=== PATIENT | male | born 1945 | race Caucasian/White ===

== ENCOUNTER 2017-10-18 08:30 | Outpatient (RCR) | payer MEDICARE, BC, SELFPAY ==
--- NOTE | 2017-10-05 13:55 | PTTR_ITS ---
DATE: 10/05/17 SUBJECTIVE: Андрей states that his shoulder is feeling really good. He has questions about what he can and can't do, stating that he purchased a [employer] and will be getting it tomorrow. Compliant with HEP: x Yes No OBJECTIVE: Manual therapy: ([id number]): Андрей received manual stretching through all planes of left shoulder motion. He initially tolerates 120 degrees active shoulder flexion, 140 passive. He received sustained stretching into all planes , with sustained holds into flexion and abduction. Performed gentle rolling and gliding of the humeral head, and progressive stretching. He eventually tolerates 150 degrees flexion, 70 IR and 70 ER. Therapeutic procedures ([id number]). * x HEP review: * x Provided skilled instruction in proper exercise performance: Attempted UE activities on [employer] with high kneel rows on L3, although patient is unable to maintain appropriate form with loading of the LUE. Instead instructed him in theraband resisted exercises, consisting of 3 sets of 10 rows, extension and tricep kick backs, all of which he tolerates well, although with significant fatigue. He was instructed in squatting activities on the [employer] , with need for cues and positional correction. He was provided with a green theraband for home use. * Provided skilled manual cues to facilitate proper muscle recruitment and/ or movement pattern: For appropriate upright positioning during UE exercises. Direct treatment time: 30 minutes Total treatment time: 30 minutes
--- NOTE | 2017-10-18 08:30 | PTDS_ITS ---
Date: October 18, 2017 Referring: Dr. Andrew Cosby [facility] Diagnosis: L TSA 07/04/17 PT DX: Same Treatment dates: 07/26/17- 10/18/17 Subjective: History of Present Illness: Андрей states that his shoulder is feeling great. He continues to feel challenged by the theraband exercises although has no pain to speak of. 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 . . He continues to struggle with lifting items and sensation of weakness in the arm. Standardized Measures: DASH score shows a 27% deficit. Objective: Posture: Good upright posturing without protective positioning of the L UE. Palpation: Well healed surgical incision over the anterior shoulder. ROM: Shoulder flexion allows 165 degrees A on L, abduction 160 A, functional IR is comparable to the R with thumb to L2. Active ER allows 45 degrees with elbows at sides. Strength: Shoulder flexion is 5/5 R, 4/5 L. Abduction 4/5 R, 4-/5 L, IR 4+/5 bilaterally, ER is 5/5 R, 4/5 L. Treatment: Therapeutic Procedure [id number]: Today's session consisted of a re- assessment followed by review of HEP and progression to include some sidelying ER. The patient requires verbal and tactile cues for appropriate scapular positioning and avoidance of compensatory scapular movement patterns. Treatment Time: 20 mins Direct/Total. Assessment: The patient is a 71 year old male who has been receiving PT intervention for rehabilitation following a L total shoulder replacement. He is now almost 4 months post op and has regained significant amount of function out of the UE. 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 At this point all rehab goals have been met and patient is appropriate for discharge to fully independent program. G-Codes: [id number] based on DASH score, projected goal status had been GP-CI- [id number]. ST: Full PROM L shoulder (MET) 2: Initiate AAROM L shoulder with good tolerance (MET) LT: Full functional reach L shoulder (MET) 2: Well managed pain day to day with VAS rating of less than 3/10 (MET) 3: Fully independent with ADL's including dressing and self care (MET) Plan: Discharge to [facility]. SS/dl *Dr. Cosby, please sign this discharge summary if you are in agreement with discharge plan. cc: Andrew Cosby MD
== END 2017-11-02 23:59 | disposition home or self-care (01) ==
LOC: PT 08:30
PROVIDERS: PCP Emergency Medicine; Referring Provider Orthopaedic Surgery Adult Reconstructive Orthopaedic Surgery; Visit Provider Orthopaedic Surgery Adult Reconstructive Orthopaedic Surgery
DX: Z47.1 Aftercare following joint replacement surgery (principal); Z96.612 Presence of left artificial shoulder joint
CPT/HCPCS: 97110; 97140

== ENCOUNTER 2018-03-19 09:46 | Outpatient (CLI) | payer MEDICARE, BC, SELFPAY ==
[2018-03-19 10:34] LABS: Hemoglobin A1C 7.6 % (4.5-6.2)
[2018-03-19 11:25] LABS: Cholesterol 110 mg/dL (50-200); HDL Cholesterol 30 mg/dL (40-60); LDL CHOLESTEROL 54 mg/dL (<100); Triglyceride 220 mg/dL (30-150)
== END 2018-03-19 10:06 ==
PROVIDERS: PCP Emergency Medicine; Visit Provider Emergency Medicine
DX: I10 Essential (primary) hypertension (principal); E11.9 Type 2 diabetes mellitus without complications
CPT/HCPCS: 36415; 80061; 83721; 83036

== ENCOUNTER 2018-05-08 06:58 | Outpatient (CLI) | payer MEDICARE, BC, SELFPAY ==
[2018-05-08 07:51] LABS: Hemoglobin A1C 7.4 % (4.5-6.2)
[2018-05-08 08:13] LABS: Anion Gap 9.1 mmol/L (3-11); BUN 14 mg/dL (7-18); CO2 30.9 mmol/L (21.0-32.0); CREATININE 1.15 mg/dL (0.70-1.30); Calcium 9.2 mg/dL (8.5-10.1); Chloride 101 mmol/L (98-107); Glucose 126 mg/dL (70-100); Potassium 3.6 mmol/L (3.5-5.1); Sodium 141 mmol/L (136-145)
== END 2018-05-08 07:18 ==
PROVIDERS: PCP Emergency Medicine; Visit Provider Emergency Medicine
DX: I10 Essential (primary) hypertension (principal); R73.9 Hyperglycemia, unspecified; E11.9 Type 2 diabetes mellitus without complications
CPT/HCPCS: 36415; 80048; 83036

== ENCOUNTER 2018-07-01 07:05 | Outpatient (CLI) | payer MEDICARE, BC, SELFPAY ==
[2018-07-01 07:32] LABS: Abs Immature Grans 0.01 k/cumm (0.0-0.09); Absolute Basophil Count 0.01 k/cumm (0.0-0.2); Absolute Eosinophil Count 0.11 k/cumm (0.0-0.7); Absolute Lymphocyte Count 1.25 k/cumm (1.2-3.4); Absolute Monocyte Count 0.46 k/cumm (0.11-0.7); Basophils % 0.2; HGB 13.3 g/dL (13.5-17.5); Immature Grans % 0.2; Mean Corp. HGB Concentration 33.3 g/dL (32.0-36.0); Mean Corpuscular Hemoglobin 29.8 pg (27.0-33.0); Mean Corpuscular Volume 89.5 fL (80-95); Mean Platelet Volume 10.5 fL (8.0-11.0); Monocytes % 8.5; Neutrophils % 66.1; Platelet Count 216 x1000/uL (130-400); RBC 4.47 m/cumm (4.50-6.00); RBC Distribution Width 13.1 % (11.8-14.1); White Blood Cell Count 5.44 k/cumm (4.4-10.8)
[2018-07-01 07:45] LABS: ALT 24 U/L (12-78); AST 17 U/L (15-37); Albumin 3.4 g/dL (3.4-5.0); Alkaline Phosphatase 61 U/L (46-116); Anion Gap 6.1 mmol/L (3-11); BUN 14 mg/dL (7-18); Bilirubin, Total 0.6 mg/dL (0.2-1.0); CO2 31.9 mmol/L (21.0-32.0); CREATININE 0.94 mg/dL (0.70-1.30); Calcium 8.9 mg/dL (8.5-10.1); Chloride 103 mmol/L (98-107); Glucose 122 mg/dL (70-100); Potassium 3.6 mmol/L (3.5-5.1); Sodium 141 mmol/L (136-145); Total Protein 6.8 g/dL (6.4-8.2)
== END 2018-07-01 07:25 ==
PROVIDERS: PCP Emergency Medicine; Visit Provider Nurse Practitioner
DX: C7A.8 Other malignant neuroendocrine tumors (principal)
CPT/HCPCS: 36415; 80053; 85025

== ENCOUNTER 2019-01-28 10:24 | Outpatient (CLI) | payer MEDICARE, BC, SELFPAY ==
[2019-01-28 12:49] LABS: Hemoglobin A1C 6.6 % (4.5-6.2)
[2019-01-28 12:54] LABS: Calculated LDL 41 mg/dL; Cholesterol 106 mg/dL (<200); HDL Cholesterol 29 mg/dL (40-60); Triglyceride 183 mg/dL (<150)
== END 2019-01-28 10:44 ==
PROVIDERS: PCP Emergency Medicine; Visit Provider Emergency Medicine
DX: E11.9 Type 2 diabetes mellitus without complications (principal); R73.9 Hyperglycemia, unspecified
CPT/HCPCS: 36415; 80061; 83036

== ENCOUNTER 2020-01-23 01:47 | Outpatient (CLI) | payer MEDICARE, BC, SELFPAY ==
[2020-01-23 09:55] LABS: Anion Gap 10.8 mmol/L (3-11); BUN 12 mg/dL (7-18); CO2 30.2 mmol/L (21.0-32.0); CREATININE 0.93 mg/dL (0.70-1.30); Calculated LDL 23 mg/dL (<100); Chloride 103 mmol/L (98-107); Cholesterol 94 mg/dL (<200); Glucose 117 mg/dL (74-106); HDL Cholesterol 31 mg/dL (40-60); Potassium 3.6 mmol/L (3.5-5.1); Sodium 144 mmol/L (136-145); Triglyceride 202 mg/dL (<150)
[2020-01-26 15:24] LABS: PSA, Screening 2.1 ng/mL (0-6.5)
== END 2020-01-23 02:07 ==
PROVIDERS: PCP Emergency Medicine; Visit Provider Emergency Medicine
DX: I10 Essential (primary) hypertension (principal); Z12.5 Encounter for screening for malignant neoplasm of prostate; N40.2 Nodular prostate without lower urinary tract symptoms
CPT/HCPCS: 36415; 80048; 80061; 84153

== ENCOUNTER 2020-01-27 11:07 | Outpatient (REF) | payer MEDICARE, BC, SELFPAY ==
[2020-01-27 14:07] LABS: Anion Gap 2.8 mmol/L (3-11); BUN 16 mg/dL (7-18); CO2 33.2 mmol/L (21.0-32.0); CREATININE 1.02 mg/dL (0.70-1.30); Calcium 9.1 mg/dL (8.5-10.1); Chloride 103 mmol/L (98-107); Glucose 104 mg/dL (74-106); Sodium 139 mmol/L (136-145)
[2020-01-27 14:11] LABS: Hemoglobin A1C 6.7 % (<5.7)
== END 2020-01-27 11:27 ==
LOC: LBN 11:07
PROVIDERS: PCP Emergency Medicine; Visit Provider Emergency Medicine
DX: E11.9 Type 2 diabetes mellitus without complications (principal); I10 Essential (primary) hypertension
CPT/HCPCS: 80048; 83036

== ENCOUNTER 2020-08-03 10:20 | Outpatient (CLI) | payer MEDICARE, BC, SELFPAY ==
[2020-08-03 12:40] LABS: HCT 37.9 % (40.0-50.0); HGB 12.8 g/dL (13.5-17.5); MCH 29.4 pg (27.0-33.0); MCHC 33.8 % (32.0-36.0); MCV 87.1 fL (80-95); Platelet Count 235 10^3/uL (130-400); RBC 4.35 10^6/uL (4.36-5.78); RDW 12.5 % (11.8-14.1); RDW-SD 39.9 fL; WBC 5.86 10^3/uL (4.4-10.8)
[2020-08-03 12:49] LABS: Anion Gap 7.2 mmol/L (3-11); BUN 14 mg/dL (7-18); CO2 31.8 mmol/L (21.0-32.0); CREATININE 0.9 mg/dL (0.70-1.30); Chloride 104 mmol/L (98-107); Glucose 115 mg/dL (74-106); Sodium 143 mmol/L (136-145)
[2020-08-03 13:50] LABS: COMMENT (LAB VIEW ONLY) 249.84 mg/dL
== END 2020-08-03 10:21 | disposition home or self-care (01) ==
LOC: LOS 10:21
PROVIDERS: PCP Emergency Medicine; Visit Provider Emergency Medicine
DX: I10 Essential (primary) hypertension (principal); E11.9 Type 2 diabetes mellitus without complications
CPT/HCPCS: 36415; 80048; 85027; 82043; 82570; 83036

== ENCOUNTER 2020-12-20 11:22 | Outpatient (CLI) | payer MEDICARE, BC, SELFPAY ==
[2020-12-20 17:13] LABS: FREE T4 1.05 ng/dL (0.76-1.46); TSH 4.53 uIU/mL (0.36-3.74)
[2020-12-20 17:30] LABS: T4 10.8 ug/mL (4.7-13.3)
[2020-12-21 17:53] LABS: T3, Total 163 ng/dL (97-169)
[2020-12-24 15:38] LABS: T3 (Triiodothyronine) Reverse 30 ng/dL (10-24)
== END 2020-12-20 11:23 | disposition home or self-care (01) ==
LOC: LBO 12-21 11:26
PROVIDERS: PCP Emergency Medicine; Visit Provider Optometrist
DX: E05.90 Thyrotoxicosis, unspecified without thyrotoxic crisis or storm (principal); H05.20 Unspecified exophthalmos
CPT/HCPCS: 36415; 84436; 84439; 84443; 84480; 84482

== ENCOUNTER 2021-05-06 11:26 | Outpatient (REF) | payer MEDICARE, BC, SELFPAY ==
[2021-05-06 16:02] LABS: HCT 42.6 % (40.0-50.0); HGB 13.7 g/dL (13.5-17.5); MCH 28.4 pg (27.0-33.0); MCHC 32.2 % (32.0-36.0); MCV 88.2 fL (80-95); MPV 10.8 fL (8.0-11.0); Platelet Count 267 10^3/uL (130-400); RBC 4.83 10^6/uL (4.36-5.78); RDW 12.1 % (11.8-14.1); RDW-SD 38.7 fL; WBC 5.57 10^3/uL (4.4-10.8)
[2021-05-06 16:39] LABS: Hemoglobin A1C 7.2 % (<5.7)
[2021-05-06 16:42] LABS: ALT 28 U/L (16-63); AST 19 U/L (15-37); Albumin 3.7 g/dL (3.4-5.0); Alkaline Phosphatase 55 U/L (46-116); Anion Gap 8.5 mmol/L (3-11); BUN 13 mg/dL (7-18); Bilirubin, Total 0.6 mg/dL (0.2-1.0); CO2 29.5 mmol/L (21.0-32.0); CREATININE 0.9 mg/dL (0.70-1.30); Calcium 8.8 mg/dL (8.5-10.1); Calculated LDL 22 mg/dL (<100); Chloride 104 mmol/L (98-107); Cholesterol 89 mg/dL (<200); Glucose 128 mg/dL (74-106); HDL Cholesterol 32 mg/dL (40-60); Potassium 3.7 mmol/L (3.5-5.1); Sodium 142 mmol/L (136-145); Triglyceride 178 mg/dL (<150)
[2021-05-06 16:53] LABS: COMMENT (LAB VIEW ONLY) 210.71 mg/dL; Microalb ug/mg Crea 15.5 ug/mg Cr
== END 2021-05-06 11:27 | disposition home or self-care (01) ==
LOC: NCHCN 11:26
PROVIDERS: Visit Provider Physician Assistant
DX: I10 Essential (primary) hypertension (principal); E11.9 Type 2 diabetes mellitus without complications; E78.5 Hyperlipidemia, unspecified
CPT/HCPCS: 80053; 80061; 85027; 82043; 82570; 83036

== ENCOUNTER 2021-08-31 10:23 | Outpatient (REF) | payer MEDICARE, BC, SELFPAY ==
[2021-08-31 16:26] LABS: FREE T4 0.96 ng/dL (0.76-1.46)
== END 2021-08-31 10:24 | disposition home or self-care (01) ==
LOC: NCHCN 10:23
PROVIDERS: PCP Physician Assistant; Visit Provider Physician Assistant
DX: H05.20 Unspecified exophthalmos; I10 Essential (primary) hypertension; E05.90 Thyrotoxicosis, unspecified without thyrotoxic crisis or storm; N40.1 Benign prostatic hyperplasia with lower urinary tract symptoms
CPT/HCPCS: 84154; 84439; 84443

== ENCOUNTER 2022-03-24 12:27 | Outpatient (CLI) | payer MEDICARE, BC, SELFPAY ==
--- NOTE | 2022-03-24 | DI.RAD_ITS ---
Exam(s) XR WRIST RT COMPLETE EXAM: XR WRIST RT COMPLETE CLINICAL HISTORY: RT WRIST PAIN, M25.531. TECHNIQUE: 2D digital imaging was performed of the right wrist. Three views were obtained. PA, lat eral and oblique views were obtained. COMPARISON: No exams were available for comparison FINDINGS: BONES: No acute fracture is present. No bony destructive lesion is seen. JOINTS: The carpal bones are normally aligned. There is narrowing of the radiocarpal joint with mild sclerosis. There are marked degenerative changes seen at the 1st CMC joint with joint space narrowin g, subchondral sclerosis and bony hypertrophy. SOFT TISSUE: Normal. 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 Moderate degenerative changes seen at the radiocar pal joint. DATA REPOSITORY: RADIATION DOSE DELIVERED:
== END 2022-03-24 12:47 ==
LOC: DI 12:29
PROVIDERS: PCP Physician Assistant; Visit Provider Nurse Practitioner Family
DX: M18.11 Unilateral primary osteoarthritis of first carpometacarpal joint, right hand (principal)
CPT/HCPCS: 73110

== ENCOUNTER → 2022-04-27 09:55 | Outpatient (BNVA) | payer MEDICARE, BC, SELFPAY | PROVIDERS: PCP Physician Assistant; Referring Provider Physician Assistant; Visit Provider Student in an Organized Health Care Education/Training Program | DX: M19.031 Primary osteoarthritis, right wrist (principal) | CPT/HCPCS: 99203 ==

== ENCOUNTER 2022-05-11 13:10 | Outpatient (CLI) | payer MEDICARE, BC, SELFPAY ==
[2022-05-11 23:55] LABS: PSA, Diagnostic 2.1 ng/mL (<=6.5)
== END 2022-05-11 13:11 | disposition home or self-care (01) ==
LOC: LBO 13:11
PROVIDERS: PCP Physician Assistant; Visit Provider Urology
DX: N40.1 Benign prostatic hyperplasia with lower urinary tract symptoms (principal); N42.89 Other specified disorders of prostate
CPT/HCPCS: 36415; 84153

== ENCOUNTER 2022-08-29 15:46 | Outpatient (REF) | payer MEDICARE, BC, SELFPAY ==
[2022-08-29 19:39] LABS: Bilirubin Negative (Negative); Blood Moderate (Negative); Clarity Clear (Clear); Glucose Negative (Negative); Ketones Negative (Negative); Leukocyte Esterase Trace (Negative); Nitrite Negative (Negative); pH 7.5 (5-8)
[2022-08-29 19:50] LABS: Bacteria Moderate HPF (Negative); C & S Indicated? Yes; Casts Negative LPF (Negative); Crystals Negative HPF (Negative); Epithelial Cells Rare HPF (Negative); Mucus Negative (Negative)
[2022-08-29 20:19] LABS: COMMENT (LAB VIEW ONLY) 80.74 mg/dL
== END 2022-08-29 15:47 | disposition home or self-care (01) ==
LOC: NCHCN 15:46
PROVIDERS: PCP Physician Assistant; Visit Provider Physician Assistant
DX: I25.10 Atherosclerotic heart disease of native coronary artery without angina pectoris (principal); E11.9 Type 2 diabetes mellitus without complications; E78.5 Hyperlipidemia, unspecified; I10 Essential (primary) hypertension; R31.9 Hematuria, unspecified
CPT/HCPCS: 87077; 81003; 81015; 82043; 82570; 87086; 87186

== ENCOUNTER 2022-08-30 18:04 | Outpatient (REF) | payer MEDICARE, BC, SELFPAY ==
[2022-08-30 17:40] LABS: HCT 42.8 % (40.0-50.0); HGB 13.8 g/dL (13.5-17.5); MCH 28.9 pg (27.0-33.0); MCHC 32.2 % (32.0-36.0); MCV 90 fL (80-95); Platelet Count 333 10^3/uL (130-400); RBC 4.78 10^6/uL (4.36-5.78); RDW 12.7 % (11.8-14.1); RDW-SD 41.2 fL; WBC 6.98 10^3/uL (4.4-10.8)
[2022-08-30 18:11] LABS: ALT 31 U/L (16-63); AST 22 U/L (15-37); Albumin 3.5 g/dL (3.4-5.0); Alkaline Phosphatase 60 U/L (46-116); BUN 10 mg/dL (7-18); Bilirubin, Total 0.4 mg/dL (0.2-1.0); CREATININE 0.9 mg/dL (0.70-1.30); Calcium 9.5 mg/dL (8.5-10.1); Calculated LDL 21 mg/dL (<100); Chloride 102 mmol/L (98-107); Cholesterol 81 mg/dL (<200); Estimated GFR 89.07 (mL/min/1.73m2); Glucose 129 mg/dL (74-106); HDL Cholesterol 29 mg/dL (40-60); Potassium 3.9 mmol/L (3.5-5.1); Sodium 141 mmol/L (136-145); Total Protein 7.5 g/dL (6.4-8.2); Triglyceride 158 mg/dL (<150)
[2022-08-30 18:46] LABS: Hemoglobin A1C 7.8 % (<5.7)
== END 2022-08-30 18:05 | disposition home or self-care (01) ==
LOC: NCHCN 18:04
PROVIDERS: PCP Physician Assistant; Visit Provider Physician Assistant
DX: E11.9 Type 2 diabetes mellitus without complications (principal); I25.10 Atherosclerotic heart disease of native coronary artery without angina pectoris; E78.5 Hyperlipidemia, unspecified; I10 Essential (primary) hypertension
CPT/HCPCS: 80053; 80061; 85027; 83036

== ENCOUNTER → 2022-11-09 03:33 | Outpatient (CLI) | payer MEDICARE, BC, SELFPAY ==
--- NOTE | 2022-11-09 08:37 | DI.US_ITS ---
APPROVED REPORT EXAM: Comprehensive 2D, Doppler, and color-flow Echocardiogram Patient Location: Out-Patient Gas Maker: Rome Doty RDCS (AE) Indications: new onset afib Other Information Study Quality: Good Conclusion Mild concentric left ventricular hypertrophy. Normal left ventricular chamber size. Ejection fracti on is 55%. Wall motion is normal Normal right ventricular size and systolic function Left atrium is borderline dilated. Right atrial size is normal Aortic valve is sclerotic and trileaflet with trace regurgitation. There is no aortic stenosis Normal mitral valve with mild regurgitation Normal tricuspid valve with mild to moderate regurgitation. Estimated right ventricular systolic pre ssure is 22 mmHg Wall motion Left Ventricle The left ventricle is normal size. The left ventricular systolic function is normal. The left ventric ular ejection fraction is within the normal range. Mild concentric left ventricular hypertrophy. Ther e is normal LV segmental wall motion. There is no ventricular septal defect visualized. LVEF is 55%. Right Ventricle The right ventricle is normal size. The right ventricular systolic function is normal. The RVSP is 21 .8 mmHg. Atria Left atrium is borderline dilated. The right atrium size is normal. The interatrial septum is intact with no evidence for an atrial septal defect. Aortic Valve The Aortic valve is sclerotic. Aortic valve is trileaflet. There is no aortic valvular stenosis. Trac e aortic regurgitation. Mitral Valve The mitral valve is normal in structure. No evidence of mitral valve stenosis. Mild mitral regurgitat ion. Tricuspid Valve The tricuspid valve is normal in structure. There is no tricuspid valve stenosis. Mild to moderate tr icuspid regurgitation. Pulmonic Valve The pulmonary valve is normal in structure. There is no pulmonic valvular stenosis. There is no pulmo linda valvular regurgitation. Great Vessels The aortic root is normal in size. IVC is normal in size and collapses >50% with inspiration. Pericardium There is no pericardial effusion. 2D Dimensions IVSD d PLAX 1.30 cm M: 0.6-1.2 Ao Root d 3.40 cm M: 3.1 - 3.7 LVPW d PLAX 1.26 cm M: 0.6 - 1.2 LVID d PLAX 4.82 cm M: 4.2 - 5.8 LVDs 3.45 cm M: 2.5 - 4.0 LV EF Teichholz 54.8 % FS 28.46 % LV EDV (Teich) 108.7 mL LV ESV (Teich) 49.1 mL Stroke Vol Index (Teich) 30.38 M-Mode TAPSE 2.25 cm (M/F) >1.7 Auto EF LV EDV A4C 104.1 mL LV EDV A2C 130.6 mL LV EDV BP 117.7 mL LV ESV A4C 50.7 mL LV ESV A2C 58.3 mL LV ESV BP 54.4 mL LVEF(%) A4C 51.3 % LVEF(%) A2C 55.3 % LVEF(%) BP 53.8 % LV SV A4C 53.4 ml LV SV A2C 72.2 ml LV SV BP 63.3 ml LV CO A4C 3.1 L/min LV CO A2C 4.6 L/min LV CO BP 3.9 L/min HR A4C 58.35 BPM HR A2C 64.06 BPM LV EDV Index (BP) LA Volume LA Length A4C 5.1 cm LA Length A2C LA Area A4C s 15.88 cm2 LA Area A2C s LA Vol A4C A-L 42.00 mL LA Vol A2C A-L LA Vol Biplane A-L LA Vol A4C MOD 40.3 mL LA Vol A2C MOD LA Vol BP MOD RA Volume RA Area A4C 11.7 cm2 RA ESV A4C (A-L) 20.6mL RA Vol/BSA A4C A-L RA Length A4C 5.7 cm RA ESV A4C (MOD) 20.1mL LV Diastology MV E' medial 0.058 (>0.07 m/s) MV E Vmax 0.61 (0.4-1.3 m/s) MV E/E' MED 10.50 (<14) MV A Vmax 0.80 (0.4-1.3 m/s) MV E' lateral 0.080 (>0.1 m/s) E/A Ratio 0.8 MV E/E' LAT 7.65 (<14) MV E' Average 0.069 m/s MV E/E'(average) 8.85 Aortic Valve AoV Vmax 1.83 m/s LVOT Vmax 1.18 m/s AoV Peak Grad 33.0 mmHg LVOT Peak Grad 5.5 mmHg AoV Area (Vmax) 1.59 cm2 LVOT VTI 0.251 m AoV VTI 0.407 m LVOT Mean Grad 3.1 mmHg AoV Mean Dany. 1.19 m/s LVOT SV 62.09 mL AoV Mean Grad 6.6 mmHg LVOT Diam s 1.75 cm AoV Area (VTI) 1.52 cm2 AV Regurg Peak Gr. 52.45 mmHg Velocity Ratio 0.64 AR Decel Pleasants 0.8m/sec2 AR DT 4794 msec AR PHT 1390 msec AR Vmax 3.62 m/s Mitral Valve MV DT 216 (160-240 msec) Pulmonary Valve PV Vmax 1.06 (0.5-1.5 m/s) RVOT Vmax 0.67 m/s PV Peak Grad 4.5 mmHg RVOT Peak Gr. 1.8 mmHg PV Mean Dany 0.68 m/s RVOT VTI 0.119 m PV Mean Grad 2.2 mmHg RVOT Mean Gr. 0.7 mmHg Tricuspid Valve RA Pressure 3.00 mmHg TR Vmax 2.17 m/s TR Peak Grad 18.7 mmHg RVSP (TR) 21.8 mmHg
== END ==
PROVIDERS: PCP Physician Assistant; Visit Provider Physician Assistant
DX: I48.91 Unspecified atrial fibrillation (principal)
CPT/HCPCS: 93306

== ENCOUNTER → 2022-11-30 09:37 | Outpatient (CLI) | payer MEDICARE, BC, SELFPAY ==
--- NOTE | 2022-11-30 | DI.US_ITS ---
Exam(s) US SCROTUM EXAM: US SCROTUM CLINICAL HISTORY: LT SCROTAL SWELLING, AND PAIN UNRESOLVED AFTER ANTIBIOTICS TECHNIQUE: Ultrasound of the testes performed using grayscale, color, and Doppler imaging. COMPARISON: None. FINDINGS: RIGHT HEMISCROTUM: The right testicle exhibits normal size and echo architecture with no evidence of intratesticular mas s. Vascular flow was demonstrated within the right testicle, including arterial waveforms. The epididymis appears unremarkable. There are no epididymal head cysts. There is a moderate size non septated right hydrocele. No varicocele. LEFT HEMISCROTUM: The left testicle exhibits normal size and echo architecture with no evidence of intratesticular mass . Vascular flow is demonstrated within the left testicle, including arterial waveforms. The epididymis appears unremarkable. There are no epididymal head cysts. There is a moderate size non septated left hydrocele. No varicocele. IMPRESSION: 1. No evidence of testicular mass nor testicular torsion. 2. There are moderate-sized bilateral hydroceles. 3. No varicoceles evident DATA REPOSITORY:
== END ==
PROVIDERS: PCP Physician Assistant; Visit Provider Urology
DX: N43.2 Other hydrocele (principal); N50.812 Left testicular pain
CPT/HCPCS: 76870

== ENCOUNTER → 2022-12-07 03:02 | Outpatient (CLI) | payer MEDICARE, BC, SELFPAY ==
--- NOTE | 2022-12-07 | DI.CT_ITS ---
Exam(s) CT ABDOMEN PELVIS WO/W EXAM: CT ABDOMEN PELVIS WO/W CLINICAL HISTORY: GROSS HEMATURIA R31.0. TECHNIQUE: Imaging Protocol: Axial computed tomography images with coronal and sagittal reformatted images were created and reviewed. Performed with CT urogram technique protocol. CONTRAST MATERIAL: Intravenous: Omnipaque-350 100cc Oral: None COMPARISON: No exams were available for comparison FINDINGS: VISUALIZED LUNG BASES: No nodules nor pleural effusions evident. ABDOMEN: Prominent hiatal hernia noted There is no ascites. LIVER: There are multiple well-defined hypodensities in the liver which have the appearance of benign hepatic cysts. The largest of these measures 1.3 x 0.7 cm. No dilated intrahepatic ducts. GALLBLADDER/BILIARY: No obvious gallbladder pathology. CBD is not dilated. PANCREAS: No evidence of pancreatic mass nor dilatation of the pancreatic duct. SPLEEN: Spleen is not enlarged. No obvious intrasplenic lesions. There is a single calcified granulo ma noted in this spleen. Splenic and portal veins are patent. ADRENALS: There are no significant adrenal masses. KIDNEYS:There are no solid renal masses. There is a prominent cyst in the lateral cortex of the right kidney which measures 5 cm by cm by 5 cm.. This simple benign cyst requires no further workup. There is nephrolithiasis. There is a nonobstructive calculus in lower pole calyx of the right kidney measu ring 5 x 3 mm. In the opposite-left kidney is a tiny 1 mm calculus in the upper pole calyx. The urete rs are not dilated.. URINARY BLADDER: Uniformly thickened wall which may be related to cystitis versus under distension. N o radiopaque calculi seen in the urinary bladder. No obvious bladder masses. PROSTATE GLAND: Prostate is enlarged and slightly lobulated. It indents the bladder base. There is no obturator adenopathy nor adenopathy elsewhere in the pelvis. ABDOMINAL AORTA: Calcified but not enlarged. LYMPH NODES:There is no retroperitoneal nor paraaortic adenopathy. ABDOMINAL WALL: No evidence of significant anterior abdominal wall nor inguinal hernia. GI: There is no evidence of bowel obstruction, free air, nor abscess. PELVIS: GI: No evidence of appendicitis.There are sigmoid diverticuli but no evidence of acute diverticulitis . LYMPH NODES: There is no intrapelvic nor inguinal adenopathy. REPRODUCTIVE: See above URINARY BLADDER: See above OSSEOUS: No fractures and no significant osseous lesions. IMPRESSION: 1. Bilateral nonobstructive nephrolithiasis. There is a 5 x 3 mm nonobstructive calculus in lower levi e calyx of the right kidney. There is a tiny nonobstructive 1 mm calculus in the upper pole calyx of the opposite-left kidney. No hydronephrosis 2. There is a benign simple cyst in the lateral cortex of the right kidney measuring 5 cm. This does not require further workup. There are no solid masses evident in kidneys. 3. Uniformly thickened urinary bladder wall which is probably a combination of chronic cystitis and r elated to the enlarged prostate gland. There are no bladder diverticuli evident. 4. Other findings as above. RADIATION DOSE DELIVERED: 2,744.56mGy.cm Total DLP DATA REPOSITORY: All CT scans at this facility are submitted to the National Radiology Data Registry (NRDR) Dose Index Registry (DIR) with the [employer] (ACR). RADIATION OPTIMIZATION: All CT scans at this facility use at least one of these dose optimization te chniques: automated exposure control; mA and/or kV adjustment per patient size (includes targeted exa ms where dose is matched to clinical indication); or iterative reconstruction.
[2022-12-07 09:50] LABS: CREATININE 0.8 mg/dL (0.70-1.30); Estimated GFR 92.29 (mL/min/1.73m2)
[2022-12-07] MEDS: Normal Saline - Diluent 50 ML VIAL IJ (10:12)
[2022-12-07] MEDS: Omnipaque 350 MG/ML 100 ML BTL IJ (10:12)
== END ==
PROVIDERS: PCP Physician Assistant; Visit Provider Urology
DX: N20.0 Calculus of kidney (principal); R31.0 Gross hematuria
CPT/HCPCS: 74178; 82565; J3490

== ENCOUNTER 2022-12-27 11:00 | Outpatient (REF) | payer MEDICARE, BC, SELFPAY ==
[2022-12-28 13:05] LABS: Creatinine,Urine 114.21 mg/dL; Sodium, Urine 108 mmol/L
[2022-12-28 13:09] LABS: CLEAVED CELLS 113 mmol/24h (40-220); Creatinine,24hr Ur 1.14 g/24hr (0.95-2.49); Total Volume 1050 ml
[2022-12-29 09:49] LABS: Phosphorus Urine 52.8 mg/dL (See Note); Phosphorus Urine 24hr 0.6 g/24hrs (0.4-1.3); Timed Urine Volume 1050 mL
[2022-12-29 09:51] LABS: Magnesium 24hr Urine 97.7 mg/24hrs (12.0-192.0); Magnesium Random Urine 9.3 mg/dL (See Note); Timed Urine Volume 1050 mL
[2022-12-29 09:55] LABS: Timed Urine Volume 1050 mL; Uric Acid Urine 39.1 mg/dL (See Note); Uric Acid Urine 24hr 411 mg/24hrs (250-750)
[2022-12-29 10:01] LABS: Calcium Urine 20.4 mg/dL (See Note); Calcium Urine 24 hr 214 mg/24hr (100-300); Timed Urine Volume 1050 mL
[2022-12-30 12:02] LABS: Citrate Excretion, 24hr, U 595 mg/24 h; Urine Volume 1050 mL
[2022-12-30 13:14] LABS: Oxalate, U 0.13 mmol/24 h (0.11-0.46); Oxalate, U 11.4 mg/24 h (9.7 - 40.5); Urine Volume 1050 mL
== END 2022-12-27 11:01 | disposition home or self-care (01) ==
LOC: LBN 11:00
PROVIDERS: PCP Physician Assistant; Visit Provider Urology
DX: N20.0 Calculus of kidney (principal)
CPT/HCPCS: 82507; 83735; 81050; 82340; 82570; 83945; 84105; 84300; 84560

== ENCOUNTER 2023-05-21 12:52 | Outpatient (REF) | payer MEDICARE, BC, SELFPAY ==
[2023-05-21 15:08] LABS: HCT 30.3 % (40.0-50.0); HGB 9.4 g/dL (13.5-17.5); MCH 27.6 pg (27.0-33.0); MCV 89 fL (80-95); MPV 10.5 fL (8.0-11.0); Platelet Count 260 10^3/uL (130-400); RDW 13.2 % (11.8-14.1); RDW-SD 43.6 fL; WBC 6.13 10^3/uL (4.4-10.8)
[2023-05-21 15:58] LABS: ALT 22 U/L (16-63); AST 16 U/L (15-37); Albumin 3.6 g/dL (3.4-5.0); Alkaline Phosphatase 50 U/L (46-116); Anion Gap 11.5 mmol/L (3-11); BUN 16 mg/dL (7-18); Bilirubin, Total 0.4 mg/dL (0.2-1.0); CO2 25.5 mmol/L (21.0-32.0); Chloride 104 mmol/L (98-107); Estimated GFR 78.49 (mL/min/1.73m2); Glucose 124 mg/dL (74-106); Hemoglobin A1C 7.7 % (<5.7); Potassium 3.8 mmol/L (3.5-5.1); Sodium 141 mmol/L (136-145); Total Protein 6.2 g/dL (6.4-8.2)
== END 2023-05-21 12:53 | disposition home or self-care (01) ==
LOC: NCHCN 12:52
PROVIDERS: PCP Physician Assistant; Visit Provider Physician Assistant
DX: E11.9 Type 2 diabetes mellitus without complications (principal)
CPT/HCPCS: 80053; 85027; 83036

== ENCOUNTER → 2023-06-21 13:48 | Outpatient (BNVA) | payer MEDICARE, BC, SELFPAY | PROVIDERS: PCP Physician Assistant; Referring Provider Physician Assistant; Visit Provider Surgery | DX: K21.9 Gastro-esophageal reflux disease without esophagitis (principal); I25.10 Atherosclerotic heart disease of native coronary artery without angina pectoris; I77.9 Disorder of arteries and arterioles, unspecified; Z95.828 Presence of other vascular implants and grafts; E11.9 Type 2 diabetes mellitus without complications; N20.0 Calculus of kidney; D50.9 Iron deficiency anemia, unspecified | CPT/HCPCS: 36415; 99215; 82607; 82728; 82746; 82977; 85025; 85045; 85610 ==

== ENCOUNTER 2023-06-21 18:41 | Outpatient (CLI) | payer MEDICARE, BC, SELFPAY ==
[2023-06-21 15:27] LABS: Abs Immature Grans 0.02 10^3/uL (0.0-0.06); Absolute Basophil Count 0.01 10^3/uL (0.0-0.2); Absolute Eosinophil Count 0.13 10^3/uL (0.0-0.7); Absolute Lymphocyte Count 1.35 10^3/uL (1.2-3.4); Absolute Monocyte Count 0.58 10^3/uL (0.1-0.8); Absolute Neutrophil Count 5.25 10^3/uL (1.2-6.7); Basophils % 0.1; Eosinophils % 1.8; HCT 37.2 % (40.0-50.0); HGB 11.4 g/dL (13.5-17.5); Immature Grans % 0.3; Lymphocytes % 18.4; MCH 26.8 pg (27.0-33.0); MCHC 30.6 % (32.0-36.0); MCV 87 fL (80-95); Monocytes % 7.9; Neutrophils % 71.5; Platelet Count 274 10^3/uL (130-400); RBC 4.26 10^6/uL (4.36-5.78); RDW-SD 53.4 fL; WBC 7.34 10^3/uL (4.4-10.8)
[2023-06-21 15:34] LABS: INR 1.2 (0.9-1.1); Prothrombin Time 11.5 sec (9.1-11.1)
[2023-06-21 15:50] LABS: Diff Comment RBC Morph Reviewed; Polychromasia Present; Schistocytes 1+
[2023-06-21 17:25] LABS: Ferritin 32 ng/mL (26-388); Vitamin B12 144 pg/mL (193-986)
[2023-06-21 17:26] LABS: Folate > 20.0 ng/mL (8.6-20.0)
[2023-06-21 17:31] LABS: GGT 18 U/L (15-85)
== END 2023-06-21 18:42 | disposition home or self-care (01) ==
LOC: LBO 18:41
PROVIDERS: PCP Physician Assistant; Visit Provider Surgery
DX: Z95.828 Presence of other vascular implants and grafts (principal); I10 Essential (primary) hypertension; I25.10 Atherosclerotic heart disease of native coronary artery without angina pectoris; E78.5 Hyperlipidemia, unspecified; E11.9 Type 2 diabetes mellitus without complications; K21.9 Gastro-esophageal reflux disease without esophagitis; N40.2 Nodular prostate without lower urinary tract symptoms; C7A.8 Other malignant neuroendocrine tumors; G47.33 Obstructive sleep apnea (adult) (pediatric); Z87.891 Personal history of nicotine dependence
CPT/HCPCS: 36415; 82607; 82728; 82746; 82977; 85025; 85045; 85610

== ENCOUNTER 2023-06-22 10:54 | Day surgery (SDC) | payer MEDICARE, BC, SELFPAY ==
--- NOTE | 2023-06-21 20:08 | ENDO_ITS ---
Date of service: 06/22/23 Time of Service: 16:20 Endoscopy Report DATE OF PROCEDURE: 06/22/23 PRE-OP DIAGNOSIS: microcytic anemia POST-OP DIAGNOSIS: other (Mild gastritis in the distal third of the stomach/4 cm hiatal hernia) SURGEON: Kristi Arevalo ANESTHESIA TYPE: General LMA/ETT ESTIMATED BLOOD LOSS: 1 PATHOLOGY: other COMPLICATIONS: None DISPOSITION: no change PROCEDURE DESCRIPTION: After informed consent was obtained the patient was take to the procedure room a nd placed in a supine position. Monitors were applied and a time out was done. The patients name, date of , procedure type, allergies to medications and metal in their body was reviewed. A bite block was placed and the patient was sedated. Once sedated and comfortable the gastroscope was advanced through the oropharynx which was grossly normal into the esophagus. The proximal and mid-esophagus were normal. In the distal esophagus there was no: Erosions/varices/diverticula/stenosis. He does have a 4 cm sliding-type hiatal hernia. The scope was advanced into the stomach and through the pylorus into the 3rd portion of the duodenum. The duodenum was noted to be . Biopsies were done, all specimens are retrieved and no bleeding is noted. The scope was retracted back into the stomach and biopsies were done to rule out H. pylori. There were no ulcers. There is some mild gastritis in the distal one third of the stomach. It is diffuse pattern. There is no signs of active bleeding. The scope was retroflexed. The cardia and fundus were noted to be normal. The scope was retracted back into the esophagus and biopsies were done of the GE junction to rule out Estrada's. The Z line was regular. The GE junction was at 38 cm. The scope was removed and continued to the CE.
--- NOTE | 2023-06-21 20:10 | W.COLOREPORT ---
Date of service: 06/22/23 Time of Service: 16:14 Colonoscopy Report Date of procedure: 06/22/23 Pre-op diagnosis general: microcytic anemia Post-op diagnosis procedure note: other Surgeon: Kristi Arevalo Anesthesia Type: General:No Airway Pathology: other Complications: None Disposition: same day Prep: Miralax/Dulcolax Retraction Time: 14 Procedure Description: After informed consent was obtained the patient was taken to the procedure room and placed in a left decubitous position. Monitors were applied and a time out was done. The patients name, date of , procedure, allergies to medications and metal in their body was reviewed. The patient was then sedated. Once sedated and comfortable a rectal exam was done. External exam was normal. Internal exam revealed a normal sphincter tone and no palpable masses. The prostate -without masses The scope was then introduced and retrofelexed. Grade 1 internal hemorrhoids times all 3 columns, were identified. The scope was then advanced to the cecum without difficulty. The TI and appendiceal orifice were identified. The scope was then slowly retracted over minutes back into the rectum. He had an AVM at 80 cm. This is fulgurated. No biopsies are taken. He does have diverticula do extend all the way over to the transverse colon. They are numerous and large in size. There is no signs of active bleeding or infection. Mucosa is pink and healthy with a normal vascular pattern, except where otherwise noted. The scope was removed and the patient was woken up and taken back to Same day surgery in stable condition. The patient tolerated the procedure well and there were no immediate complications. Follow up: The patient does not require any further colonoscopies, unless they develop changes in bowel habits or other new gastrointestinal complaints. [place] Bowel Prep [place] Bowel Prep Right Colon: 3 Left Colon: 3 Transverse Colon: 3 Total Score: 9
--- NOTE | 2023-06-21 20:12 | W.PM.DSUDISC ---
Date of service: 06/22/23 Time of Service: 14:22 Discharge Plan Disposition Patient Disposition: Home Condition: Good Discharge Details Reason For Visit: stomach and colon scope Attending Provider: Kritsi Arevalo Primary Care Provider: Pj Franklin Home Meds and New Rx's Prescriptions: New pantoprazole [Protonix] 40 mg tablet,delayed release (DR/EC) 40 mg PO DAILY Qty: 90 6RF Continued tamsulosin [Flomax] 0.4 mg capsule 0.4 mg PO DAILY metoprolol succinate 50 mg tablet extended release 24 hr 50 mg PO DAILY metformin 500 mg tablet 500 mg PO BID Rx Instructions: 2 in the am and 1 at night polyethylene glycol 3350 17 gram/dose powder 17 g PO DAILY Qty: 238 0RF potassium chloride 20 mEq tablet,ER particles/crystals 20 meq PO DAILY Qty: 180 4RF lisinopril [Zestril] 40 mg tablet 40 mg PO DAILY Qty: 90 4RF hydrochlorothiazide 25 mg tablet 25 mg PO DAILY Qty: 90 4RF rosuvastatin 20 mg tablet 20 mg PO DAILY Qty: 90 3RF nitroglycerin [Nitrostat] 0.4 mg tablet, sublingual 0.4 mg Sublingual PRN Qty: 25 4RF amlodipine 5 mg tablet 5 mg PO DAILY ferrous sulfate 325 mg (65 mg iron) tablet 325 mg PO BID Glucosamine Chondroitin 550-30-1 mg capsule 1 cap PO DAILY Discontinued aspirin 81 mg tablet,delayed release (DR/EC) 81 mg PO DAILY bisacodyl [Dulcolax (bisacodyl)] 5 mg tablet,delayed release (DR/EC) 5 mg PO ONCE Qty: 4 0RF bisacodyl [Dulcolax (bisacodyl)] 5 mg tablet,delayed release (DR/EC) 10 mg PO .Take as directed Qty: 4 0RF Rx Instructions: take at 4pm and 8pm [id number] 140-9-5.2 gram powder in packet, sequential See Rx Instructions PO .COMPLEX Qty: 3 0RF Rx Instructions: PO mix in 1 gallon of non red clear liquid. drink from 4pm-10om finish all. Nothing to eat or drink after midnight Discharge Instructions Additional Instructions: [facility] Colonoscopy Post-Op Instructions Instructions for Everyone who is given Anesthesia: For your safety, please do the following for the next twenty-four (24) hours: *Do Not operate a motor vehicle (car, truck, motorcycle, etc.) *Do Not drink alcoholic beverages or use any recreational drugs for the first 24 hours or while taking pain medications. The medications in your body may have a reaction that can be dangerous. *Do Not make any important decisions or sign any important papers. Upper: -Gastritis: This is a preulcer condition. No aspirin/NSAIDs. Protonix daily. Continue with lifestyle modifications: no alcohol, tobacco products, Aspirin or NSAID's (ibuprofen, Motrin, Naprosyn, aleve, etc), soda pop/any carbonated beverages, caffeine (including tea & chocolate), and acidic foods, (tomatoes, citrus, onions, peppermints) spicy or fried/fatty foods. Do not lie down for 30 minutes after eating, and do not eat 2 hours prior to bedtime. Avoid wearing tight fitting clothing/ belts -Hiatal hernia: Same as above. see handout -Colon: Diverticula. Make sure you are moving your bowels on a regular basis and not straining to go to the bathroom. If you find you are having some irregularity, then it is recommended you start a fiber product daily such as Metamucil. -Do not resume Xarelto until after your cataracts Follow up: Follow-up with PCP next week to determine when you should resume Xarelto. You cannot be on Xarelto and aspirin at the same time. 1. No lifting over 20 pounds or strenuous activity for the first 24 hours after your procedure. After 24 hours there are no restrictions on your activity but you may feel fatigued for a few days. 2. After you arrive home you may have a light meal and return to your normal diet as you can tolerate it without feeling sick to your stomach. 3. You may have a bloated, gaseous feeling in your belly (abdomen) after a colonoscopy. Passing gas and belching will help. Walking or lying down on your left side with your knees flexed may relieve the discomfort. Call the office at [phone] (Office) or [phone] (Hospital) right away if you notice any of the following: a.Vomiting of blood or ?coffee ground stools?. b.Rectal bleeding 1Tbsp, blood clots or continuous bleeding. c.Severe belly (abdominal) pain. d.A hard distended belly (abdomen) and an inability to pass gas. 4. Please don?t expect to have a normal BM (bowel movement) for 2-3 days after your procedure. 5. If there are questions regarding the findings of your procedure, please contact your doctor 6. If you are unable to contact your doctor with a problem, contact the hospital at [phone]. 7. Continue all your regular medications unless directed otherwise. I understand the above instructions and have no questions. 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 (4) History of intravascular stent placement: Status: Acute (5) Hyperlipidemia: Status: Chronic (6) Type 2 diabetes mellitus: Status: Chronic (7) Gastroesophageal reflux disease: Status: Chronic (8) Nodular prostate without urinary obstruction: Status: Chronic (9) Neuroendocrine carcinoma: Status: Chronic (10) Microcytic anemia: Status: Acute (11) [place] cell cancer: Status: Chronic (12) Obstructive sleep apnea syndrome: Status: Chronic (13) History of tobacco use: Status: Chronic (14) Diverticula of colon: Status: Acute Asessment and Plan: The patient is seen and examined after their colonoscopy.? The patient has been able to pass gas.? They are not having abdominal pain.? They have been able to tolerate liquids and a snack.? They do not have any nausea or vomiting.? They are not having any chest pain or shortness of breath.??? They are not having any rectal bleeding. Their vital signs have been stable-see nursing notes. We discussed findings during their colonoscopy, and any biopsies that were done/polyps that were removed. The patient will be sent a letter with any biopsy results, and when to repeat the colonoscopy.-see discharge instructions. Patient was given explicit instructions to follow-up regarding colonoscopy-refer to discharge instructions.? We reviewed resumption of medications. Patient verbalized understanding and discharged in stable and satisfactory condition- See nursing notes. (15) Hiatal hernia with GERD: Status: Acute (16) Gastritis: Status: Acute (17) AVM (arteriovenous malformation) of colon: Status: Acute
[2023-06-22 11:50] VITALS: BP 159/75; PULSE 68; RESP 16; TEMP 36.4; O2SAT 97
[2023-06-22] MEDS: Lactated Ringers 1,000 ML 80 ML IV (12:00)
--- NOTE | 2023-06-22 13:15 | ANES.PREOP_ITS ---
General Info Date of Service Date Performed: 06/22/23 Height: 5 ft 7 in Weight: 87.6 kg Body Mass Index (BMI): 30.2 Surgical Procedure: Operation Date: 06/22/23 12:05 Proposed Procedure Side Surgeon p Colonoscopy/Gastroscopy w/ biopsy possible polypectomy Kristi Arevalo, DO Meds Allergies and Home Medications Allergies Allergy/AdvReac Type Severity Reaction Status Date / Time No Known Allergies Allergy Verified 06/22/23 11:38 Home Medication Medication Instructions Recorded potassium chloride 20 mEq 20 meq PO DAILY #180 tab-caps 05/18/20 tablet,extended release(part/cryst) lisinopril 40 mg tablet (Zestril) 40 mg PO DAILY #90 tab-caps 06/15/20 hydrochlorothiazide 25 mg tablet 25 mg PO DAILY #90 tab-caps 07/16/20 rosuvastatin 20 mg tablet 20 mg PO DAILY #90 tabs 07/28/20 nitroglycerin 0.4 mg sublingual 0.4 mg sublingual PRN #25 tab-caps 08/05/20 tablet (Nitrostat) tamsulosin 0.4 mg capsule (Flomax) 0.4 mg PO DAILY 04/27/22 amlodipine 5 mg tablet 5 mg PO DAILY 06/08/23 ferrous sulfate 325 mg (65 mg 325 mg PO BID 06/08/23 iron) tablet glucosamine sulf dipot 1 cap PO DAILY 06/08/23 chlr,msm,chond 550 mg-C 30 mg-marily 1 mg capsule (Glucosamine Chondroitin) aspirin 81 mg tablet,delayed 81 mg PO DAILY 06/21/23 release bisacodyl 5 mg tablet,delayed 10 mg (2 x 5 mg) PO .Take as 06/21/23 release (Dulcolax (bisacodyl)) directed #4 tabs metformin 500 mg tablet 500 mg PO BID 06/21/23 metoprolol succinate 50 mg 50 mg PO DAILY 06/21/23 tablet,extended release 24 hr polyethylene glycol 3350 17 17 g PO DAILY #238 grams 06/21/23 gram/dose oral powder Current Visit Medications: Current Medications Generic Name Dose Route Start Last Admin Trade Name Freq PRN Reason Stop Dose Admin Hyoscyamine Sulfate 0.125 mg 06/22/23 05:08 Hyoscyamine 0.125 Mg Sl/Oral/Chew SL 07/22/23 05:07 DIRECTED PRN Ringer's Solution 1,000 mls @ 80 mls/hr 06/22/23 06:00 06/22/23 12:00 IV 07/03/23 23:59 80 mls/hr INFUSION MASON Administration IV Miscellaneous Supplies 1 each 06/22/23 06:00 Iv Access IV 07/03/23 23:59 DIRECTED MASON Ondansetron HCl 4 mg 06/22/23 05:08 Ondansetron 4 Mg/2 Ml Vial IVP 07/22/23 05:07 Q4H PRN PRN Nausea / Vomiting Sodium Chloride 0 ml 06/22/23 06:00 Normal Saline Flush 10 Ml Syr IV 07/03/23 23:59 PRN PRN Sodium Chloride 0 ml 06/22/23 06:00 Normal Saline 10 Ml Vial IJ 07/03/23 23:59 DIRECTED PRN Sterile Water 0 ml 06/22/23 06:00 Water,Injection,Sterile 10 Ml Vial IJ 07/03/23 23:59 DIRECTED PRN PFSH Active Problems Active Problems: Problem Status Onset Code Microcytic anemia D50.9 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 History of intravascular stent placement Z95.828 History of umbilical hernia repair Z98.890, Z87.19 History of ureter stent Type 2 diabetes mellitus E11.9 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 Atherosclerosis of [place] coronary artery I25.10 Essential hypertension 04/17/13 I10 Gastroesophageal reflux disease K21.9 History of tobacco use Z87.891 Hyperlipidemia E78.5 Kidney stone N20.0 [place] cell cancer 09/08/14 C4A.9 Neuroendocrine carcinoma 12/02/13 C7A.8 Nodular prostate without urinary obstruction N40.2 Obstructive sleep apnea syndrome G47.33 Sensorineural hearing loss, bilateral 12/23/13 H90.3 Tinnitus 12/17/13 H93.19 Vascular complications of renal artery I77.9 Medical History Medical History Atherosclerosis of renal artery Essential hypertension Bilateral hearing loss Exophthalmos Anemia Atrial fibrillation Abnormal auditory perception (12/17/13) Arthritis of left shoulder region (03/26/17) Benign prostatic hyperplasia Surgical History Surgical History Stent placement X 2 VASCULAR X 1 URETERAL Repair of umbilical hernia Colonoscopy - MAC (01/11/15) Tobacco Smoking/Tobacco Use Status: Former Tobacco Use Alcohol Alcohol Intake: former Year quit: 1975 Substance Use Substance use: Never Substance use type: does not use Vital Signs and Lab Results Vital Signs Most Recent Vital Signs in EMR: Most Recent Vital Signs Temp Pulse Resp BP Pulse Ox 36.4 C L 68 16 159/75 H 97 06/22/23 11:50 06/22/23 11:50 06/22/23 11:50 06/22/23 11:50 06/22/23 11:50 Point of Care Results Point of Care Results: Finger Stick Blood Glucose 117 06/22/23 11:37 Lab Results Blood Type / Crossmatch: No Data to Display Complete Blood Count: White Blood Count 7.34 10^3/uL (4.4-10.8) 06/21/23 15:17 Red Blood Count 4.26 10^6/uL (4.36-5.78) L 06/21/23 15:17 Hemoglobin 11.4 g/dL (13.5-17.5) L 06/21/23 15:17 Hematocrit 37.2 % (40.0-50.0) L 06/21/23 15:17 Platelet Count 274 10^3/uL (130-400) 06/21/23 15:17 Complete Metabolic Panel: No Data to Display Liver Function Panel: Gamma Glutamyl Transpeptidase 18 U/L (15-85) 06/21/23 15:17 Coagulation Panel: INR International Normalized Ratio 1.2 (0.9-1.1) H 06/21/23 15 :17 Prothrombin Time 11.5 sec (9.1-11.1) H 06/21/23 15:17 Cardiac Panel: No Data to Display Arterial Blood Gas: No Data to Display Venous Blood Gas: No Data to Display Pancreas Panel: No Data to Display Thyroid Panel: No Data to Display Infectious Disease: No Data to Display Blood Cultures: No Data to Display Toxicology Panel: No Data to Display Imaging and Studies Imaging and Studies Study information below may be from another EMR and interpreted by another provider. Please see original notes in EMR for more complete details. Echocardiogram Summary: Date of Exam: 11/09/22 Sex: M Admission Date: 11/09/22 : 1945 Age: 77 APPROVED REPORT EXAM: Comprehensive 2D, Doppler, and color-flow Echocardiogram Patient Location: Out-Patient Solar Installation Manager: Rome Doty RDCS (AE) Indications: new onset afib Other Information Study Quality: Good Conclusion Mild concentric left ventricular hypertrophy. Normal left ventricular chamber size. Ejection fraction is 55%. Wall motion is normal Normal right ventricular size and systolic function Left atrium is borderline dilated. Right atrial size is normal Aortic valve is sclerotic and trileaflet with trace regurgitation. There is no aortic stenosis Normal mitral valve with mild regurgitation Normal tricuspid valve with mild to moderate regurgitation. Estimated right ventricular systolic pressure is 22 mmHg Anesthesia Assessment and Plan Anesthesia History Personal History: No History of Anesthesia Complications Family History: No Family History of Anesthesia Complications Exercise Tolerance Exercise Tolerance: Metabolic Equivalents>4 Pertinent Negatives Pertinent Negatives: No Symptoms of GERD, No Major Pulmonary Symptoms or Complaints and No History of CVA/TIA Cardiac & Pulmonary Exam Cardiac Exam: Normal S1/S2 Heart Sounds Pulmonary Exam: Clear Bilateral Breath Sounds Implantable Cardiac Device Does patient have a Pacemaker or an ICD?: No Airway Exam Known Difficult Airway: No Mallampati Class: 2 Mouth Opening: Normal (> 3cm) Thyromental Distance: Less than 3 cm Facial Hair: Full Goodman Neck Range of Motion: Full ROM Neck Circumference: Normal Teeth Condition: Removable Dentures/Plates Upper and Removable Dentures/Plates Lower ASA Classification ASA Score: ASA 3 Emergency Case?: No NPO Status NPO Status: NPO Clears >2 hours, Solids >8 hours Anesthesia Plan Resuscitation Status: Full Code Anesthesia Technique: General Anesthesia Airway Planned: Natural Airway Monitors Used: Standard Monitors
[2023-06-22 13:20] VITALS: BMI 30.2
--- NOTE | 2023-06-22 13:45 | STOM_PTH ---
PATIENT: Андрей Ledesma LOC: [facility] U#:[id number] AGE/SX: 77/M ROOM: RE06/22/[address]: Kristi Arevalo : 1945 BED: DIS: 06/22/2023 SPEC #: [id number] RECD: 06/22/23 17:19 STATUS: MOUSTAPHA RE #: [id number] BRI: 06/22/23 13:[address]: Kristi Arevalo DEPT: Surgical Specimen RECD BY: Hilda Pereira ENTERED: 06/22/23 17:20 SP TYPE: STOMACH OTHR DR: Pj Franklin Tissues: 1 - BIOPSY BOWEL 2 - STOMACH BIOPSY 3 - STOMACH BIOPSY 4 - ESOPHAGUS BIOPSY 5 - ESOPHAGUS BIOPSY Procedures: GROSS AND MICRO LEVEL 4 Comments: [id number]
[2023-06-22 14:27] VITALS: BP 112/66; RESP 16; TEMP 36.4; O2SAT 93
--- NOTE | 2023-06-22 14:42 | W.ANESPOSTOP ---
Postoperative Evaluation Date, Time and Location Date Performed: 06/22/23 Time Performed: 14:42 Patient Location: Day Surgery Unit Vital Signs Most Recent Imported Vital Signs: Most Recent Vital Signs Temp Pulse Resp BP Pulse Ox 36.4 C L 68 16 112/66 93 06/22/23 14:27 06/22/23 11:50 06/22/23 14:27 06/22/23 14:27 06/22/23 14:27 Pain Score Most Recent Pain Score: Most Recent Pain Score Pain Level 0 06/22/23 14:27 Assessment Mental Status: Awake (Alert & Oriented to Patient Baseline) Airway and Respiratory Function: Patent airway with normal (patient baseline) respiratory exam Cardiovascular Function: Hemodynamically Stable Hydration Status: Adequately Hydrated Nausea & Vomiting: No Nausea or Vomiting Pain: Pt. Denies Any Pain Peripheral Nerve Block: Patient did not receive a nerve block
[2023-06-22 14:57] VITALS: BP 134/68; PULSE 60; RESP 18; TEMP 36.4; O2SAT 94
== END 2023-06-22 15:25 | disposition home or self-care (01) ==
LOC: SUR 10:55
PROVIDERS: PCP Physician Assistant; Visit Provider Surgery
PROC: (CPT 45378; principal; 2023-06-22 12:00)
DX: D50.9 Iron deficiency anemia, unspecified (principal); K64.0 First degree hemorrhoids; K57.30 Diverticulosis of large intestine without perforation or abscess without bleeding; K44.9 Diaphragmatic hernia without obstruction or gangrene; K29.70 Gastritis, unspecified, without bleeding; I10 Essential (primary) hypertension; Z86.010 Personal history of colon polyps; Z87.891 Personal history of nicotine dependence; K31.9 Disease of stomach and duodenum, unspecified
CPT/HCPCS: 45378; 43239; 88305; J2704

== ENCOUNTER 2023-09-18 09:38 | Emergency (ER) | payer MEDICARE, BC, SELFPAY ==
[2023-09-18 09:47] VITALS: BP 147/63; PULSE 67; RESP 18; TEMP 36.4; O2SAT 94
[2023-09-18 09:53] VITALS: BP 147/63; PULSE 67; RESP 18; TEMP 36.4; O2SAT 94
[2023-09-18] MEDS: diazePAM 5 MG TAB PO (10:23)
[2023-09-18] MEDS: Ketorolac 15 MG/ML VIAL 10 MG IVP (10:24)
[2023-09-18 10:39] LABS: Abs Immature Grans 0.02 10^3/uL (0.0-0.06); Absolute Basophil Count 0.03 10^3/uL (0.0-0.2); Absolute Lymphocyte Count 0.85 10^3/uL (1.2-3.4); Absolute Monocyte Count 0.41 10^3/uL (0.1-0.8); Basophils % 0.5 %; Eosinophils % 1.8 %; HCT 36.8 % (40.0-50.0); HGB 11.3 g/dL (13.5-17.5); Immature Grans % 0.4 %; Lymphocytes % 14.9 %; MCH 25.2 pg (27.0-33.0); MCHC 30.7 % (32.0-36.0); MCV 82 fL (80-95); MPV 9.5 fL (8.0-11.0); Monocytes % 7.2 %; Neutrophils % 75.2 %; Platelet Count 268 10^3/uL (130-400); RBC 4.49 10^6/uL (4.36-5.78); RDW 16.6 % (11.8-14.1); RDW-SD 49.4 fL; WBC 5.71 10^3/uL (4.4-10.8)
[2023-09-18 10:42] LABS: ESR 16 mm/hr (0-20)
[2023-09-18 10:55] LABS: ALT 24 U/L (16-63); AST 15 U/L (15-37); Albumin 3.6 g/dL (3.4-5.0); Alkaline Phosphatase 68 U/L (46-116); Anion Gap 5.5 mmol/L (3-11); BUN 12 mg/dL (7-18); Bilirubin, Total 0.79 mg/dL (0.2-1.0); C-Reactive Protein 0.68 mg/dL (<or=0.5); CO2 31.5 mmol/L (21.0-32.0); CREATININE 0.9 mg/dL (0.70-1.30); Calcium 9.2 mg/dL (8.5-10.1); Chloride 102 mmol/L (98-107); Estimated GFR 88.51 (mL/min/1.73m2); Glucose 113 mg/dL (74-106); Potassium 3.9 mmol/L (3.5-5.1); Sodium 139 mmol/L (136-145); Total Protein 7.3 g/dL (6.4-8.2)
[2023-09-18 11:41] VITALS: BP 143/89; PULSE 86; RESP 18; O2SAT 97
--- NOTE | 2023-09-18 14:58 | W.ED.GENAD ---
Discharge Plan Disposition Patient Disposition: Home Condition: Stable Discharge Details Clinical Impression: Muscle spasm, Neck pain Primary Care Provider: Pj Franklin ED Provider: Anil Pond Home Meds and New Rx's Prescriptions: New lidocaine [Lidoderm] 5 % adhesive patch,medicated 1 patch topical DAILY Qty: 15 0RF Rx Instructions: leave on most painful area for up to 12 hrs methocarbamol 500 mg tablet 500 mg PO TID PRN (Reason: spasm) Qty: 20 0RF No Action tamsulosin [Flomax] 0.4 mg capsule 0.4 mg PO DAILY metoprolol succinate 50 mg tablet extended release 24 hr 50 mg PO DAILY metformin 500 mg tablet 500 mg PO BID Rx Instructions: 2 in the am and 1 at night potassium chloride 20 mEq tablet,ER particles/crystals 20 meq PO DAILY Qty: 180 4RF lisinopril [Zestril] 40 mg tablet 40 mg PO DAILY Qty: 90 4RF hydrochlorothiazide 25 mg tablet 25 mg PO DAILY Qty: 90 4RF rosuvastatin 20 mg tablet 20 mg PO DAILY Qty: 90 3RF nitroglycerin [Nitrostat] 0.4 mg tablet, sublingual 0.4 mg Sublingual PRN Qty: 25 4RF amlodipine 5 mg tablet 5 mg PO DAILY Glucosamine Chondroitin 550-30-1 mg capsule 1 cap PO DAILY pantoprazole [Protonix] 40 mg tablet,delayed release (DR/EC) 40 mg PO DAILY Qty: 90 6RF acetaminophen 500 mg capsule 500 mg PO QID PRN aspirin 81 mg tablet,chewable 81 mg PO DAILY Discharge Instructions Instructions: Muscle Spasm ED Additional Instructions: No signs or symptoms today concerning for stroke. Lab work reassuring and unlikely to be inflammatory condition causing the symptoms. Please aggressively treat the muscle spasm in your neck Return with any change in vision. Pain in your eye or severe acute onset of head pain HPI General Date/Time Provider Initiated Documentation: 09/18/23 09:44. Limitations to Documentation: no limitations. Information obtained by: patient and family. HPI Narrative: 78-year-old gentleman with a past medical history of CAD, diabetes, hypertension presents for evaluation of neck pain. Reports that he has been having intermittent ongoing right sided neck pain. Over the last few days this has worsened and has been radiating up into his head. He reports that today he has pain extending and feeling some pressure around the right eye. He denies any eye pain, denies any blurry vision or visual changes. Denies any acute onset severe headache. He has no weakness, sensory change or speech deficits. He contacted his provider who can encouraged him to come to the emergency department for evaluation Related Data Home Medications ?Medication ?Instructions ?Recorded ?Confirmed potassium chloride 20 mEq 20 meq PO DAILY #180 tab-caps 05/18/20 09/18/23 tablet,extended release(part/cryst) lisinopril 40 mg tablet (Zestril) 40 mg PO DAILY #90 tab-caps 06/15/20 09/18/23 hydrochlorothiazide 25 mg tablet 25 mg PO DAILY #90 tab-caps 07/16/20 09/18/23 rosuvastatin 20 mg tablet 20 mg PO DAILY #90 tabs 07/28/20 09/18/23 nitroglycerin 0.4 mg sublingual 0.4 mg sublingual PRN #25 tab-caps 08/05/20 09/18/23 tablet (Nitrostat) tamsulosin 0.4 mg capsule (Flomax) 0.4 mg PO DAILY 04/27/22 09/18/23 amlodipine 5 mg tablet 5 mg PO DAILY 06/08/23 09/18/23 glucosamine sulf dipot 1 cap PO DAILY 06/08/23 09/18/23 chlr,msm,chond 550 mg-C 30 mg-marily 1 mg capsule (Glucosamine Chondroitin) metformin 500 mg tablet 500 mg PO BID 06/21/23 09/18/23 metoprolol succinate 50 mg 50 mg PO DAILY 06/21/23 09/18/23 tablet,extended release 24 hr pantoprazole 40 mg tablet,delayed 40 mg PO DAILY #90 tabs 06/22/23 09/18/23 release (Protonix) acetaminophen 500 mg capsule 500 mg PO QID PRN 09/18/23 09/18/23 aspirin 81 mg chewable tablet 81 mg PO DAILY 09/18/23 09/18/23 lidocaine 5 % topical patch 1 patch topical DAILY #15 ea 09/18/23 (Lidoderm) methocarbamol 500 mg tablet 500 mg PO TID PRN spasm #20 tabs 09/18/23 Previous Rx's ?Medication ?Instructions ?Recorded potassium chloride 20 mEq 20 meq PO DAILY #180 tab-caps 05/18/20 tablet,extended release(part/cryst) lisinopril 40 mg tablet (Zestril) 40 mg PO DAILY #90 tab-caps 06/15/20 hydrochlorothiazide 25 mg tablet 25 mg PO DAILY #90 tab-caps 07/16/20 rosuvastatin 20 mg tablet 20 mg PO DAILY #90 tabs 07/28/20 nitroglycerin 0.4 mg sublingual 0.4 mg sublingual PRN #25 tab-caps 08/05/20 tablet (Nitrostat) pantoprazole 40 mg tablet,delayed 40 mg PO DAILY #90 tabs 06/22/23 release (Protonix) lidocaine 5 % topical patch 1 patch topical DAILY #15 ea 09/18/23 (Lidoderm) methocarbamol 500 mg tablet 500 mg PO TID PRN spasm #20 tabs 09/18/23 Allergies Allergy/AdvReac Type Severity Reaction Status Date / Time No Known Allergies Allergy Verified 09/18/23 09:53 General Stated Complaint: EyeProblem JACINTA: 3 Exam Narrative Exam Narrative: Review of Systems: All systems reviewed & are unremarkable except as noted in HPI and below Well-developed, no acute distress NCAT PERRL, normal conjunctiva Visual acuity slightly abnormal, the patient is not wearing his glasses No tenderness over the temporal artery + Large spasm in the trapezius no midline neck tenderness step-off or deformity RRR Unlabored respiratory effort Nondistended abdomen Extremities w/o deformity, no cyanosis, no edema No rashes or lesions. no focal neurologic deficits cranial nerves intact, no facial asymmetry, normal speech, normal gait, symmetric strength Appropriate mood and affect Course Vital Signs Vital signs: Vital Signs Temperature 36.4 C 09/18/23 09:47 Pulse 67 09/18/23 09:47 Respiratory Rate 18 09/18/23 09:47 Blood Pressure 147/63 H 09/18/23 09:47 Pulse Oximetry 94 09/18/23 09:47 Temperature 36.4 C 09/18/23 09:53 Temperature Source Oral 09/18/23 09:53 Pulse 86 09/18/23 11:41 Respiratory Rate 18 09/18/23 11:41 Respiratory Effort Normal, Non-Labored 09/18/23 09:52 Blood Pressure 143/89 H 09/18/23 11:41 Blood Pressure Position Sitting 09/18/23 09:53 Pulse Oximetry 97 09/18/23 11:41 Oxygen Delivery Method Room Air 09/18/23 09:53 Oxygen Flow Rate 0 09/18/23 09:53 Pain Level 5 09/18/23 10:24 Comment the pain is constant. 09/18/23 09:53 Lab/Test Results Lab/Test Results: Laboratory Tests Range/Units 09/18/23 10:30 WBC (4.4-10.8) 10^3/uL 5.71 RBC (4.36-5.78) 10^6/uL 4.49 Hgb (13.5-17.5) g/dL 11.3 L Hct (40.0-50.0) % 36.8 L MCV (80-95) fL 82 MCH (27.0-33.0) pg 25.2 L MCHC (32.0-36.0) % 30.7 L RDW (11.8-14.1) % 16.6 H Plt Count (130-400) 10^3/uL 268 MPV (8.0-11.0) fL 9.5 Immature Gran % % 0.4 Neutrophils % % 75.2 Lymphocytes % % 14.9 Monocytes % % 7.2 Eosinophils % % 1.8 Basophils % % 0.5 Nucleated RBC % (0.0-0.3) % 0.0 Absolute Neutrophils (1.2-6.7) 10^3/uL 4.30 Absolute Lymphocytes (1.2-3.4) 10^3/uL 0.85 L Absolute Monocytes (0.1-0.8) 10^3/uL 0.41 Absolute Eosinophils (0.0-0.7) 10^3/uL 0.10 Absolute Basophils (0.0-0.2) 10^3/uL 0.03 ESR (0-20) mm/hr 16 Sodium (136-145) mmol/L 139 Potassium (3.5-5.1) mmol/L 3.9 Chloride (98-107) mmol/L 102 Carbon Dioxide (21.0-32.0) mmol/L 31.5 Anion Gap (3-11) mmol/L 5.5 BUN (7-18) mg/dL 12 Creatinine (0.70-1.30) mg/dL 0.9 Est GFR (CKD-EPI 2020) (mL/min/1.73m2) 88.51 Glucose (74-106) mg/dL 113 H Calcium (8.5-10.1) mg/dL 9.2 Total Bilirubin (0.2-1.0) mg/dL 0.79 AST (15-37) U/L 15 ALT (16-63) U/L 24 Alkaline Phosphatase (46-116) U/L 68 C-Reactive Protein (<or=0.5) mg/dL 0.68 H Total Protein (6.4-8.2) g/dL 7.3 Albumin (3.4-5.0) g/dL 3.6 Medical Decision Making Evaluation of neck and head pain. Initial differential includes muscle spasm, tension headache. I do not suspect an acute intracranial process, and the patient has no symptoms concerning for CVA. The eye complaint that started today does not appear to actually be related to the orbit. His visual acuity does not seem abnormal in the setting that he does not wear his corrective lenses at this time and forgot his glasses. Given his age he is evaluated for temporal arteritis thought a low suspicion based on his physical examination. He does have a large muscle spasm which I suspect is the etiology of his symptoms. Will treat with NSAIDs and Valium.. Lab work reviewed, no leukocytosis, no significant anemia. ESR within normal limits. CRP nonspecifically elevated only slightly. The remainder of the CMP is unremarkable. The patient feels better medication. Again I do not feel he has a CVA and needs any imaging for this. I do recommend more aggressive treatment of his muscle spasm and close follow-up with his PCP. Medical Records Medical records reviewed: Yes I reviewed the patient's medical records. Lab Data Lab results reviewed: Yes I reviewed the patient's lab results. Quality:[facility] Health Related Social Needs: No Data to Display PFSH All Active Problems Neck pain (Acute) Muscle spasm (Acute) AVM (arteriovenous malformation) of colon (Acute) Gastritis (Acute) Hiatal hernia with GERD (Acute) Diverticula of colon (Acute) Microcytic anemia (Acute) Degenerative joint disease of right wrist (Acute) History of intravascular stent placement (Acute) History of umbilical hernia repair (Acute) History of ureter stent (Acute) Type 2 diabetes mellitus (Chronic) Status post replacement of left shoulder joint (Chronic) Atherosclerosis of [place] coronary artery (Chronic) S/P STENTING 2004 Essential hypertension (Chronic 04/17/13) Gastroesophageal reflux disease (Chronic) History of tobacco use (Chronic) Hyperlipidemia (Chronic) Kidney stone (Chronic) right; stent placed [place] cell cancer (Chronic 09/08/14) 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 Nam LOVING Malignant [place] Cell tumor Radiation and chemo Nodular prostate without urinary obstruction (Chronic) RIGHT PROSTATE Obstructive sleep apnea syndrome (Chronic) Sensorineural hearing loss, bilateral (Chronic 12/23/13) Tinnitus (Chronic 12/17/13) Vascular complications of renal artery (Chronic) 2007-mod. bilateral renal stenosis Medical History Atherosclerosis of renal artery Essential hypertension Bilateral hearing loss Exophthalmos Anemia Atrial fibrillation Abnormal auditory perception (12/17/13) Arthritis of left shoulder region (03/26/17) Benign prostatic hyperplasia Surgical History History of esophagogastroduodenoscopy (~06/2023) History of colonoscopy (~06/2023) Stent placement X 2 VASCULAR X 1 URETERAL Repair of umbilical hernia Colonoscopy - MAC (01/11/15) Family History Mother Heart disease Father Stroke Sister Neoplasm Sister Essential hypertension Sister Diabetes Essential hypertension Brother Myocardial infarction Maternal Grandmother Cancer Social History Smoking/Tobacco Use Status: Former Tobacco Use Quit Date: 03/05/11 Smoking risk assessment performed?: Yes Alcohol Intake: former Year quit: 1975 Drug use: Never Substance use type: does not use Household members: spouse Housing: house Pets and animals: No Sexually active: No Frequency: does not exercise Dianne/Adventist: No preference Special dianne needs: No Do you feel safe at home: Yes Do you feel safe in your relationship?: Yes
== END 2023-09-18 11:41 | disposition home or self-care (01) ==
LOC: ER 11:48
PROVIDERS: Emergency Provider Emergency Medicine; PCP Physician Assistant
DX: M62.838 Other muscle spasm (principal); M54.2 Cervicalgia; H05.20 Unspecified exophthalmos; I10 Essential (primary) hypertension; E78.5 Hyperlipidemia, unspecified; I25.10 Atherosclerotic heart disease of native coronary artery without angina pectoris; E11.9 Type 2 diabetes mellitus without complications; Z79.82 Long term (current) use of aspirin; Z79.84 Long term (current) use of oral hypoglycemic drugs; Z95.5 Presence of coronary angioplasty implant and graft; Z87.891 Personal history of nicotine dependence
CPT/HCPCS: 36415; 80053; 85652; 96374; 99284; 85025; 86140; 99283; J1885

== ENCOUNTER 2023-11-13 12:50 | Outpatient (CLI) | payer MEDICARE, BC, SELFPAY ==
[2023-11-13 10:23] LABS: HGB 10.9 g/dL (13.5-17.5); MCH 25.1 pg (27.0-33.0); MCHC 30.3 % (32.0-36.0); MCV 83 fL (80-95); MPV 9.9 fL (8.0-11.0); Platelet Count 258 10^3/uL (130-400); RBC 4.34 10^6/uL (4.36-5.78); RDW 16.1 % (11.8-14.1); RDW-SD 48.4 fL; WBC 7.01 10^3/uL (4.4-10.8)
[2023-11-13 11:04] LABS: COMMENT (LAB VIEW ONLY) 64.85 mg/dL; Microalb ug/mg Crea 50.3 ug/mg Cr
[2023-11-13 11:08] LABS: ALT 17 U/L (16-63); AST 19 U/L (15-37); Albumin 3.4 g/dL (3.4-5.0); Alkaline Phosphatase 63 U/L (46-116); Anion Gap 8.7 mmol/L (3-11); BUN 12 mg/dL (7-18); Bilirubin, Total 0.58 mg/dL (0.2-1.0); CO2 30.3 mmol/L (21.0-32.0); CREATININE 0.9 mg/dL (0.70-1.30); Calcium 9.2 mg/dL (8.5-10.1); Chloride 101 mmol/L (98-107); Estimated GFR 88.51 (mL/min/1.73m2); Glucose 127 mg/dL (74-106); Potassium 3.7 mmol/L (3.5-5.1); Sodium 140 mmol/L (136-145)
[2023-11-13 11:21] LABS: Calculated LDL 15 mg/dL (<100); Cholesterol 73 mg/dL (<200); HDL Cholesterol 31 mg/dL (40-60); Triglyceride 137 mg/dL (<150)
[2023-11-13 11:47] LABS: Iron 37 ug/dL (65-175); Total Iron Binding Capacity 417 ug/dL (250-450); Transferrin Sat 9 % (20-55)
[2023-11-13 13:34] LABS: Hemoglobin A1C 7.2 % (<5.7)
== END 2023-11-13 12:51 | disposition home or self-care (01) ==
LOC: LBO 12:50
PROVIDERS: PCP Physician Assistant; Visit Provider Physician Assistant
DX: E78.5 Hyperlipidemia, unspecified (principal); D64.9 Anemia, unspecified; E11.9 Type 2 diabetes mellitus without complications
CPT/HCPCS: 36415; 80053; 80061; 85027; 82043; 82570; 83036; 83540; 83550

== ENCOUNTER → 2024-01-21 10:39 | Outpatient (BNVA) | payer MEDICARE, BC, SELFPAY | PROVIDERS: PCP Physician Assistant; Referring Provider Physician Assistant; Visit Provider Surgery | DX: I25.10 Atherosclerotic heart disease of native coronary artery without angina pectoris (principal); E11.9 Type 2 diabetes mellitus without complications; K21.9 Gastro-esophageal reflux disease without esophagitis; D50.9 Iron deficiency anemia, unspecified | CPT/HCPCS: 99213 ==

== ENCOUNTER 2024-01-21 11:51 | Outpatient (CLI) | payer MEDICARE, BC, SELFPAY ==
[2024-01-21 11:57] LABS: HCT 37.3 % (40.0-50.0); HGB 11.2 g/dL (13.5-17.5)
[2024-01-21 12:49] LABS: Ferritin 15 ng/mL (26-388)
== END 2024-01-21 11:52 | disposition home or self-care (01) ==
LOC: LBO 11:53
PROVIDERS: PCP Physician Assistant; Visit Provider Surgery
DX: I10 Essential (primary) hypertension (principal); E11.9 Type 2 diabetes mellitus without complications; I25.10 Atherosclerotic heart disease of native coronary artery without angina pectoris; K21.9 Gastro-esophageal reflux disease without esophagitis; K44.9 Diaphragmatic hernia without obstruction or gangrene; K29.70 Gastritis, unspecified, without bleeding; D50.9 Iron deficiency anemia, unspecified
CPT/HCPCS: 36415; 99213; 82728; 85014; 85018

== ENCOUNTER 2024-02-06 07:29 | Outpatient (CLI) | payer MEDICARE, BC, SELFPAY ==
[2024-02-06 19:04] LABS: PSA, Diagnostic 1.5 ng/mL (<=6.5)
== END 2024-02-06 07:30 | disposition home or self-care (01) ==
LOC: LBO 07:30
PROVIDERS: PCP Physician Assistant; Visit Provider Urology
DX: N42.89 Other specified disorders of prostate (principal)
CPT/HCPCS: 36415; 84153

== ENCOUNTER → 2024-02-21 09:20 | Outpatient (BNVA) | payer MEDICARE, BC, SELFPAY | PROVIDERS: PCP Physician Assistant; Referring Provider Physician Assistant; Visit Provider Surgery | DX: L72.9 Follicular cyst of the skin and subcutaneous tissue, unspecified (principal) | CPT/HCPCS: 11422 ==

== ENCOUNTER → 2024-02-28 13:37 | Outpatient (BNVA) | payer MEDICARE, BC, SELFPAY | PROVIDERS: PCP Physician Assistant; Referring Provider Physician Assistant; Visit Provider Surgery | DX: Z48.817 Encounter for surgical aftercare following surgery on the skin and subcutaneous tissue (principal) ==

== ENCOUNTER → 2024-03-03 14:01 | Outpatient (BNVA) | payer MEDICARE, BC, SELFPAY | PROVIDERS: PCP Physician Assistant; Referring Provider Physician Assistant; Visit Provider Student in an Organized Health Care Education/Training Program | DX: M67.431 Ganglion, right wrist (principal) | CPT/HCPCS: 99213 ==

== ENCOUNTER → 2024-03-06 09:00 | Outpatient (BNVA) | payer MEDICARE, BC, SELFPAY | PROVIDERS: PCP Physician Assistant; Referring Provider Physician Assistant; Visit Provider Surgery | DX: D17.21 Benign lipomatous neoplasm of skin and subcutaneous tissue of right arm (principal); Z48.02 Encounter for removal of sutures ==

== ENCOUNTER 2024-04-23 10:23 | Day surgery (SDC) | payer MEDICARE, BC, SELFPAY ==
--- NOTE | 2024-04-23 07:48 | W.PM.DSUDISC ---
Date of service: 04/23/24 Discharge Plan Disposition Patient Disposition: Home Condition: Good Discharge Details Reason For Visit: Right ganglion cyst Attending Provider: Vaughn Anderson Primary Care Provider: Pj Franklin Home Meds and New Rx's Prescriptions: New hydrocodone-acetaminophen 5-325 mg tablet 1 tab PO Q6H PRN (Reason: severe pain) Qty: 4 0RF Rx Instructions: Take one tablet up to every 6 hours as needed for severe postoperative pain Continued pantoprazole [Protonix] 40 mg tablet,delayed release (DR/EC) 40 mg PO BID Qty: 60 12RF ferrous sulfate 15 mg iron (75 mg)/mL drops 1 ml PO BID 30 Days Qty: 60 3RF tamsulosin [Flomax] 0.4 mg capsule 0.4 mg PO DAILY metoprolol succinate 50 mg tablet extended release 24 hr 50 mg PO DAILY metformin 500 mg tablet 500 mg PO BID Rx Instructions: 2 in the am and 1 at night potassium chloride 20 mEq tablet,ER particles/crystals 20 meq PO DAILY Qty: 180 4RF lisinopril [Zestril] 40 mg tablet 40 mg PO DAILY Qty: 90 4RF hydrochlorothiazide 25 mg tablet 25 mg PO DAILY Qty: 90 4RF rosuvastatin 20 mg tablet 20 mg PO DAILY Qty: 90 3RF nitroglycerin [Nitrostat] 0.4 mg tablet, sublingual 0.4 mg Sublingual PRN Qty: 25 4RF amlodipine 5 mg tablet 5 mg PO DAILY Glucosamine Chondroitin 550-30-1 mg capsule 1 cap PO DAILY acetaminophen 500 mg capsule 500 mg PO QID PRN aspirin 81 mg tablet,chewable 81 mg PO DAILY lidocaine [Lidoderm] 5 % adhesive patch,medicated 1 patch topical DAILY Qty: 15 0RF Rx Instructions: leave on most painful area for up to 12 hrs methocarbamol 500 mg tablet 500 mg PO TID PRN (Reason: spasm) Qty: 20 0RF Discharge Instructions Additional Instructions: Ganglion Cyst Excision Discharge Instructions Activity: You should keep the hand elevated as much as possible for the first few days. You may use the other fingers as tolerated but avoid trying to do too much too soon. Dressing/Cast: Your dressing should stay in place at all times for the next 72 hours. After 72 hours you may remove and cover with a band-aide or light gauze dressing. Medications: - You should take Tylenol and Ibuprofen for baseline pain control. - You have Hydrocodone for breakthrough pain. - You may apply ice over the area. Follow-up: 7-10 days Activity:: Elevate Remove Dressings/Wound Care:: 72 hours Shower/Bathe:: 72 hours Diet:: As Tolerated Discharge Orders Discharge Orders: Discharge Order (Routine); Ordered 04/23/24 Ordered By: Kristi Melo
--- NOTE | 2024-04-23 10:22 | W.ANESPRE ---
General Info Date of Service Date Performed: 04/23/24 Height: 5 ft 7 in Weight: 88.904 kg Body Mass Index (BMI): 30.7 Surgical Procedure: Operation Date: 04/23/24 12:55 Proposed Procedure Side Surgeon p Wrist Ganglion Cyst Excision Right Vaughn Anderson MD Meds Allergies and Home Medications Allergies Allergy/AdvReac Type Severity Reaction Status Date / Time No Known Allergies Allergy Verified 04/23/24 11:00 Home Medication ?Medication ?Instructions ?Recorded potassium chloride 20 mEq 20 meq PO DAILY #180 tab-caps 05/18/20 tablet,extended release(part/cryst) lisinopril 40 mg tablet (Zestril) 40 mg PO DAILY #90 tab-caps 06/15/20 hydrochlorothiazide 25 mg tablet 25 mg PO DAILY #90 tab-caps 07/16/20 rosuvastatin 20 mg tablet 20 mg PO DAILY #90 tabs 07/28/20 nitroglycerin 0.4 mg sublingual 0.4 mg sublingual PRN #25 tab-caps 08/05/20 tablet (Nitrostat) tamsulosin 0.4 mg capsule (Flomax) 0.4 mg PO DAILY 04/27/22 amlodipine 5 mg tablet 5 mg PO DAILY 06/08/23 glucosamine sulf dipot 1 cap PO DAILY 06/08/23 chlr,msm,chond 550 mg-C 30 mg-marily 1 mg capsule (Glucosamine Chondroitin) metformin 500 mg tablet 500 mg PO BID 06/21/23 metoprolol succinate 50 mg 50 mg PO DAILY 06/21/23 tablet,extended release 24 hr acetaminophen 500 mg capsule 500 mg PO QID PRN 09/18/23 aspirin 81 mg chewable tablet 81 mg PO DAILY 09/18/23 lidocaine 5 % topical patch 1 patch topical DAILY #15 ea 09/18/23 (Lidoderm) methocarbamol 500 mg tablet 500 mg PO TID PRN spasm #20 tabs 09/18/23 pantoprazole 40 mg tablet,delayed 40 mg PO BID #60 tabs 01/21/24 release (Protonix) ferrous sulfate 15 mg iron (75 1 ml PO BID 30 days #60 mL 01/22/24 mg)/mL oral drops hydrocodone 5 mg-acetaminophen 325 1 tab PO Q6H PRN severe pain #4 04/23/24 mg tablet tabs Current Visit Medications: Current Medications Generic Name Dose Route Start Last Admin Trade Name Freq PRN Reason Stop Dose Admin Acetaminophen 1,000 mg 04/23/24 06:00 Acetaminophen 500 Mg Tab PO 04/23/24 23:59 PREOP [place] Acetaminophen 650 mg 04/23/24 07:48 Acetaminophen 325 Mg Tab PO 05/23/24 07:47 Q4H PRN PRN Hydrocodone Bitart/Acetaminophen 0 tab 04/23/24 07:48 Hydrocodone 5/Acetaminophen 325 Tab PO 05/23/24 07:47 Q3H PRN PRN Pain Celecoxib 400 mg 04/23/24 06:00 Celecoxib 200 Mg Cap PO 04/23/24 23:59 PREOP [place] Ringer's Solution 1,000 mls @ 80 mls/hr 04/23/24 06:00 IV 04/23/24 23:59 INFUSION [place] Cefazolin Sodium/Dextrose 2 gm in 50 mls @ 100 mls/hr 04/23/24 06:00 Ancef Duplex IVPB 04/23/24 23:59 PREOP [place] Tranexamic Acid/Sodium Chloride 1,000 mg in 100 mls @ 600 mls/hr 04/23/24 06:00 IVPB 04/23/24 23:59 PREOP [facility] IV Miscellaneous Supplies 1 each 04/23/24 06:00 Iv Access IV 04/23/24 23:59 DIRECTED [place] Sodium Chloride 0 ml 04/23/24 06:00 Normal Saline Flush 10 Ml Syr IV 04/23/24 23:59 PRN PRN Sodium Chloride 0 ml 04/23/24 06:00 Normal Saline 10 Ml Vial IJ 04/23/24 23:59 DIRECTED PRN Sterile Water 0 ml 04/23/24 06:00 Water,Injection,Sterile 10 Ml Vial IJ 04/23/24 23:59 DIRECTED PRN PFSH Active Problems Active Problems: Problem Status Onset Code Ganglion cyst of volar aspect of right wrist Acute M67.431 Chronic iron deficiency anemia Acute D50.9 Lipoma Acute D17.9 Fe deficiency anemia Acute D50.9 AVM (arteriovenous malformation) of colon Acute K55.20 Gastritis Acute K29.70 Hiatal hernia with GERD Acute K21.9, K44.9 Diverticula of colon Acute K57.30 Microcytic anemia Acute D50.9 Degenerative joint disease of right wrist Acute M19.031 History of intravascular stent placement Acute Z95.828 History of umbilical hernia repair Acute Z98.890, Z87.19 History of ureter stent Acute Type 2 diabetes mellitus Chronic E11.9 Status post replacement of left shoulder joint Chronic Z96.612 Atherosclerosis of [place] coronary artery Chronic I25.10 Essential hypertension Chronic 14 I10 Gastroesophageal reflux disease Chronic K21.9 History of tobacco use Chronic Z87.891 Hyperlipidemia Chronic E78.5 Kidney stone Chronic N20.0 [place] cell cancer Chronic 09/08/14 C4A.9 Neuroendocrine carcinoma Chronic 12/02/13 C7A.8 Nodular prostate without urinary obstruction Chronic N40.2 Obstructive sleep apnea syndrome Chronic G47.33 Sensorineural hearing loss, bilateral Chronic 12/23/13 H90.3 Tinnitus Chronic 12/17/13 H93.19 Vascular complications of renal artery Chronic I77.9 Medical History Medical History Atherosclerosis of renal artery Essential hypertension Bilateral hearing loss Exophthalmos Anemia Atrial fibrillation Abnormal auditory perception (12/17/13) Arthritis of left shoulder region (03/26/17) Benign prostatic hyperplasia Surgical History Surgical History (Updated 04/22/24 @ 10:08 by Ulisses Carias) Hx of shoulder replacement History of esophagogastroduodenoscopy (~06/2023) History of colonoscopy (~06/2023) Stent placement X 2 VASCULAR X 1 URETERAL Repair of umbilical hernia Colonoscopy - MAC (01/11/15) Tobacco Smoking/Tobacco Use Status: Former Tobacco Use Alcohol Alcohol Intake: former Year quit: 1975 Substance Use Substance use: Never Substance use type: does not use Vital Signs and Lab Results Vital Signs Most Recent Vital Signs in EMR: Temp Pulse Resp BP Pulse Ox 36.5 C 64 16 153/73 H 96 04/23/24 10:49 04/23/24 10:49 04/23/24 10:49 04/23/24 10:49 04/23/24 10:49 Lab Results Blood Type / Crossmatch: No Data to Display Complete Blood Count: No Data to Display Complete Metabolic Panel: No Data to Display Liver Function Panel: No Data to Display Coagulation Panel: No Data to Display Cardiac Panel: No Data to Display Arterial Blood Gas: No Data to Display Venous Blood Gas: No Data to Display Pancreas Panel: No Data to Display Thyroid Panel: No Data to Display Infectious Disease: No Data to Display Blood Cultures: No Data to Display Toxicology Panel: No Data to Display Imaging and Studies Imaging and Studies Study information below may be from another EMR and interpreted by another provider. Please see original notes in EMR for more complete details. Echocardiogram Summary: Date of Exam: 11/09/22 Sex: M Admission Date: 11/09/22 : 1945 Age: 77 APPROVED REPORT EXAM: Comprehensive 2D, Doppler, and color-flow Echocardiogram Patient Location: Out-Patient [employer] Fab[employer]ator: Rome Doty RDCS (AE) Indications: new onset afib Other Information Study Quality: Good Conclusion Mild concentric left ventricular hypertrophy. Normal left ventricular chamber size. Ejection fraction is 55%. Wall motion is normal Normal right ventricular size and systolic function Left atrium is borderline dilated. Right atrial size is normal Aortic valve is sclerotic and trileaflet with trace regurgitation. There is no aortic stenosis Normal mitral valve with mild regurgitation Normal tricuspid valve with mild to moderate regurgitation. Estimated right ventricular systolic pressure is 22 mmHg Anesthesia Assessment and Plan Anesthesia History Personal History: No History of Anesthesia Complications Family History: No Family History of Anesthesia Complications Exercise Tolerance Exercise Tolerance: Metabolic Equivalents>4 Cardiac & Pulmonary Exam Cardiac Exam: Normal S1/S2 Heart Sounds Pulmonary Exam: Clear Bilateral Breath Sounds Implantable Cardiac Device Does patient have a Pacemaker or an ICD?: No Airway Exam Known Difficult Airway: No Mallampati Class: 2 Mouth Opening: Normal (> 3cm) Thyromental Distance: Less than 3 cm Neck Range of Motion: Full ROM Neck Circumference: Normal Teeth Condition: Removable Dentures/Plates Upper and Removable Dentures/Plates Lower ASA Classification ASA Score: ASA 3 Emergency Case?: No NPO Status NPO Status: NPO Clears >2 hours, Solids >8 hours Anesthesia Plan Resuscitation Status: Full Code Anesthesia Technique: General Anesthesia Airway Planned: LMA Monitors Used: Standard Monitors Preoperative Comments:: 78 yo male for cyst removal. Sig PMHx: CAD (stents in 2001), HTN (amlodipine, lisinopril, HCTZ, metoprolol), a fib, RICHIE, renal artery stenosis, GERD/gastritis, former smoker/EtOH. Previous Anes: - colo/EGD, ketamine, prop, natural airway, no issues.
[2024-04-23 10:29] VITALS: BMI 30.7
[2024-04-23 10:49] VITALS: BP 153/73; PULSE 64; RESP 16; TEMP 36.5; O2SAT 96
--- NOTE | 2024-04-23 11:01 | HPE_ITS ---
Documented by User: Kristi Melo 04/23/24 11:12 Assessment and Plan Assessment and plan (1) Ganglion cyst of volar aspect of right wrist: Status: Acute Assessment and plan: Plan: Educated patient on surgery covering surgical technique, recovery process, benefits and risks including but not limited to risk of infection, blood clot, damage to soft tissue/blood vessels/nerves in detail. After discussion patient gives verbal understanding of risks and elects to proceed with scheduling surgery. Patient had opportunity to have questions answered to their satisfaction. They will contact office if issues arise. Patient will continue to be scheduled for right ganglion cyst excision with Dr. Anderson History of Present Illness Narrative: Mr. Ledemsa is a 78-year-old male who presents to hospital for excision of right wrist ganglion cyst that has been present for over 6 months. For further details please see previous office note from 03/03/24. Denies any changes. Review of Systems Cardiovascular Cardiovascular: Denies chest pain, Denies dyspnea and Reports dyspnea on exertion (ie shoveling, longer harder walks - denies changes) Respiratory Respiratory: Denies dyspnea and Reports dyspnea on exertion (ie shoveling, longer harder walks - denies changes) PFSH All Active Problems Ganglion cyst of volar aspect of right wrist (Acute) Chronic iron deficiency anemia (Acute) Lipoma (Acute) Fe deficiency anemia (Acute) AVM (arteriovenous malformation) of colon (Acute) Gastritis (Acute) Hiatal hernia with GERD (Acute) Diverticula of colon (Acute) Microcytic anemia (Acute) Degenerative joint disease of right wrist (Acute) History of intravascular stent placement (Acute) History of umbilical hernia repair (Acute) History of ureter stent (Acute) Type 2 diabetes mellitus (Chronic) Status post replacement of left shoulder joint (Chronic) Atherosclerosis of [place] coronary artery (Chronic) S/P STENTING 2003 Essential hypertension (Chronic 04/17/13) Gastroesophageal reflux disease (Chronic) History of tobacco use (Chronic) Hyperlipidemia (Chronic) Kidney stone (Chronic) right; stent placed [place] cell cancer (Chronic 09/08/14) 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 Nam LOVING Malignant [place] Cell tumor Radiation and chemo Nodular prostate without urinary obstruction (Chronic) RIGHT PROSTATE Obstructive sleep apnea syndrome (Chronic) Sensorineural hearing loss, bilateral (Chronic 12/23/13) Tinnitus (Chronic 12/17/13) Vascular complications of renal artery (Chronic) 2008-mod. bilateral renal stenosis Medical History Atherosclerosis of renal artery Essential hypertension Bilateral hearing loss Exophthalmos Anemia Atrial fibrillation Abnormal auditory perception (12/17/13) Arthritis of left shoulder region (03/26/17) Benign prostatic hyperplasia Surgical History (Updated 04/22/24 @ 10:08 by Ulisses Carias) Hx of shoulder replacement History of esophagogastroduodenoscopy (~06/2023) History of colonoscopy (~06/2023) Stent placement X 2 VASCULAR X 1 URETERAL Repair of umbilical hernia Colonoscopy - MAC (01/11/15) Family History Mother Heart disease Father Stroke Sister Neoplasm Sister Essential hypertension Sister Diabetes Essential hypertension Brother Myocardial infarction Maternal Grandmother Cancer Social History Smoking/Tobacco Use Status: Former Tobacco Use Quit Date: 03/05/11 Smoking risk assessment performed?: Yes Alcohol Intake: former Year quit: 1975 Drug use: Never Substance use type: does not use Household members: spouse Housing: house Pets and animals: No Sexually active: No Frequency: does not exercise Dianne/Zoroastrian: No preference Special dianne needs: No Do you feel safe at home: Yes Do you feel safe in your relationship?: Yes Meds Allergies and Home Medications Allergies Allergy/AdvReac Type Severity Reaction Status Date / Time No Known Allergies Allergy Verified 04/23/24 11:00 Home Medications ?Medication ?Instructions ?Recorded ?Confirmed ?Type potassium chloride 20 mEq 20 meq PO DAILY #180 tab-caps 05/18/20 04/23/24 Rx tablet,extended release(part/cryst) lisinopril 40 mg tablet (Zestril) 40 mg PO DAILY #90 tab-caps 06/15/20 04/23/24 Rx hydrochlorothiazide 25 mg tablet 25 mg PO DAILY #90 tab-caps 07/16/20 04/23/24 Rx rosuvastatin 20 mg tablet 20 mg PO DAILY #90 tabs 07/28/20 04/23/24 Rx nitroglycerin 0.4 mg sublingual 0.4 mg sublingual PRN #25 tab-caps 08/05/20 04/23/24 Rx tablet (Nitrostat) tamsulosin 0.4 mg capsule (Flomax) 0.4 mg PO DAILY 04/27/22 04/23/24 History amlodipine 5 mg tablet 5 mg PO DAILY 06/08/23 04/23/24 History glucosamine sulf dipot 1 cap PO DAILY 06/08/23 04/23/24 History chlr,msm,chond 550 mg-C 30 mg-marily 1 mg capsule (Glucosamine Chondroitin) metformin 500 mg tablet 500 mg PO BID 06/21/23 04/23/24 History metoprolol succinate 50 mg 50 mg PO DAILY 06/21/23 04/23/24 History tablet,extended release 24 hr acetaminophen 500 mg capsule 500 mg PO QID PRN 09/18/23 04/23/24 History aspirin 81 mg chewable tablet 81 mg PO DAILY 09/18/23 04/23/24 History lidocaine 5 % topical patch 1 patch topical DAILY #15 ea 09/18/23 04/23/24 Rx (Lidoderm) methocarbamol 500 mg tablet 500 mg PO TID PRN spasm #20 tabs 09/18/23 04/23/24 Rx pantoprazole 40 mg tablet,delayed 40 mg PO BID #60 tabs 01/21/24 04/23/24 Rx release (Protonix) ferrous sulfate 15 mg iron (75 1 ml PO BID 30 days #60 mL 01/22/24 04/23/24 Rx mg)/mL oral drops hydrocodone 5 mg-acetaminophen 325 1 tab PO Q6H PRN severe pain #4 04/23/24 Rx mg tablet tabs Exam Const General: cooperative and healthy appearing Resp Auscultation: clear to auscultation bilaterally, no rales, no rhonchi and no wheezes Cardio Heart Sounds: S1 normal and S2 normal Results Last Vital Signs Temp 97.7 F 04/23/24 10:49 Pulse 64 04/23/24 10:49 Resp 16 04/23/24 10:49 BP 153/73 H 04/23/24 10:49 Pulse Ox 96 04/23/24 10:49 Documented by User: Vaughn Anderson MD 04/24/24 05:53 Assessment and Plan Assessment and plan (1) Ganglion cyst of volar aspect of right wrist: Status: Acute Assessment and plan: Plan: Educated patient on surgery covering surgical technique, recovery process, benefits and risks including but not limited to risk of infection, blood clot, damage to soft tissue/blood vessels/nerves in detail. After discussion patient gives verbal understanding of risks and elects to proceed with scheduling surgery. Patient had opportunity to have questions answered to their satisfaction. They will contact office if issues arise. Patient will continue to be scheduled for right ganglion cyst excision with Dr. Anderson I interviewed and examined the patient with Kristi Melo PA-C. I agree with the documentation as above. The assessment and plan were formulated with my direct involvement. Андрей is a 78-year-old who has a large cyst that has persisted about the right volar wrist. Given the size and its pain and dysfunction of causes, I offered cyst excision. I reviewed the surgery with him once again. I discussed risk to include bleeding, infection, pain, stiffness, recurrence, damage nerves and vessels. Despite these risk, he elects to proceed. Vaughn Anderson MD FAAOS FAAHKS PFSH All Active Problems Ganglion cyst of volar aspect of right wrist (Acute) Chronic iron deficiency anemia (Acute) Lipoma (Acute) Fe deficiency anemia (Acute) AVM (arteriovenous malformation) of colon (Acute) Gastritis (Acute) Hiatal hernia with GERD (Acute) Diverticula of colon (Acute) Microcytic anemia (Acute) Degenerative joint disease of right wrist (Acute) History of intravascular stent placement (Acute) History of umbilical hernia repair (Acute) History of ureter stent (Acute) Type 2 diabetes mellitus (Chronic) Status post replacement of left shoulder joint (Chronic) Atherosclerosis of [place] coronary artery (Chronic) S/P STENTING 2003 Essential hypertension (Chronic 04/17/13) Gastroesophageal reflux disease (Chronic) History of tobacco use (Chronic) Hyperlipidemia (Chronic) Kidney stone (Chronic) right; stent placed [place] cell cancer (Chronic 09/08/14) 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 Nam LOVING Malignant [place] Cell tumor Radiation and chemo Nodular prostate without urinary obstruction (Chronic) RIGHT PROSTATE Obstructive sleep apnea syndrome (Chronic) Sensorineural hearing loss, bilateral (Chronic 12/23/13) Tinnitus (Chronic 12/17/13) Vascular complications of renal artery (Chronic) 2007-mod. bilateral renal stenosis Medical History Atherosclerosis of renal artery Essential hypertension Bilateral hearing loss Exophthalmos Anemia Atrial fibrillation Abnormal auditory perception (12/17/13) Arthritis of left shoulder region (03/26/17) Benign prostatic hyperplasia Surgical History (Updated 04/22/24 @ 10:08 by Ulisses Carias) Hx of shoulder replacement History of esophagogastroduodenoscopy (~06/2023) History of colonoscopy (~06/2023) Stent placement X 2 VASCULAR X 1 URETERAL Repair of umbilical hernia Colonoscopy - MAC (01/11/15) Family History Mother Heart disease Father Stroke Sister Neoplasm Sister Essential hypertension Sister Diabetes Essential hypertension Brother Myocardial infarction Maternal Grandmother Cancer Social History Smoking/Tobacco Use Status: Former Tobacco Use Quit Date: 03/05/11 Smoking risk assessment performed?: Yes Alcohol Intake: former Year quit: 1975 Drug use: Never Substance use type: does not use Household members: spouse Housing: house Pets and animals: No Sexually active: No Frequency: does not exercise Dianne/Zoroastrian: No preference Special dianne needs: No Do you feel safe at home: Yes Do you feel safe in your relationship?: Yes Meds Allergies and Home Medications Allergies Allergy/AdvReac Type Severity Reaction Status Date / Time No Known Allergies Allergy Verified 04/23/24 11:00 Home Medications ?Medication ?Instructions ?Recorded ?Confirmed ?Type potassium chloride 20 mEq 20 meq PO DAILY #180 tab-caps 05/18/20 04/23/24 Rx tablet,extended release(part/cryst) lisinopril 40 mg tablet (Zestril) 40 mg PO DAILY #90 tab-caps 06/15/20 04/23/24 Rx hydrochlorothiazide 25 mg tablet 25 mg PO DAILY #90 tab-caps 07/16/20 04/23/24 Rx rosuvastatin 20 mg tablet 20 mg PO DAILY #90 tabs 07/28/20 04/23/24 Rx nitroglycerin 0.4 mg sublingual 0.4 mg sublingual PRN #25 tab-caps 08/05/20 04/23/24 Rx tablet (Nitrostat) tamsulosin 0.4 mg capsule (Flomax) 0.4 mg PO DAILY 04/27/22 04/23/24 History amlodipine 5 mg tablet 5 mg PO DAILY 06/08/23 04/23/24 History glucosamine sulf dipot 1 cap PO DAILY 06/08/23 04/23/24 History chlr,msm,chond 550 mg-C 30 mg-marily 1 mg capsule (Glucosamine Chondroitin) metformin 500 mg tablet 500 mg PO BID 06/21/23 04/23/24 History metoprolol succinate 50 mg 50 mg PO DAILY 06/21/23 04/23/24 History tablet,extended release 24 hr acetaminophen 500 mg capsule 500 mg PO QID PRN 09/18/23 04/23/24 History aspirin 81 mg chewable tablet 81 mg PO DAILY 09/18/23 04/23/24 History lidocaine 5 % topical patch 1 patch topical DAILY #15 ea 09/18/23 04/23/24 Rx (Lidoderm) methocarbamol 500 mg tablet 500 mg PO TID PRN spasm #20 tabs 09/18/23 04/23/24 Rx pantoprazole 40 mg tablet,delayed 40 mg PO BID #60 tabs 01/21/24 04/23/24 Rx release (Protonix) ferrous sulfate 15 mg iron (75 1 ml PO BID 30 days #60 mL 01/22/24 04/23/24 Rx mg)/mL oral drops hydrocodone 5 mg-acetaminophen 325 1 tab PO Q6H PRN severe pain #4 04/23/24 Rx mg tablet tabs
[2024-04-23] MEDS: Acetaminophen 500 MG TAB 1000 MG PO (11:11)
[2024-04-23] MEDS: Celecoxib 200 MG CAP 400 MG PO (11:11)
[2024-04-23] MEDS: Lactated Ringers 1,000 ML 80 ML IV (11:12)
[2024-04-23] MEDS: ceFAZolin 2 GM/50 ML BAG IVPB (12:57)
[2024-04-23 13:30] VITALS: BP 99/53; PULSE 45; RESP 16; TEMP 36.1; O2SAT 97
[2024-04-23 13:55] VITALS: BP 126/73; PULSE 57; RESP 16; TEMP 36.2; O2SAT 94
--- NOTE | 2024-04-23 13:56 | W.ANESPOSTOP ---
Postoperative Evaluation Date, Time and Location Date Performed: 04/23/24 Time Performed: 13:57 Patient Location: Day Surgery Unit Vital Signs Most Recent Imported Vital Signs: Most Recent Vital Signs Temp Pulse Resp BP Pulse Ox 36.1 C L 45 L 16 99/53 L 97 04/23/24 13:30 04/23/24 13:30 04/23/24 13:30 04/23/24 13:30 04/23/24 13:30 Pain Score Most Recent Pain Score: Most Recent Pain Score Pain Level 0 04/23/24 13:30 Assessment Mental Status: Awake (Alert & Oriented to Patient Baseline) Airway and Respiratory Function: Patent airway with normal (patient baseline) respiratory exam Cardiovascular Function: Hemodynamically Stable Hydration Status: Adequately Hydrated Nausea & Vomiting: No Nausea or Vomiting Pain: Pain is tolerable per patient Peripheral Nerve Block: Patient did not receive a nerve block
--- NOTE | 2024-04-23 21:04 | ROE_ITS ---
Operative Note Operative Note PRE-OP DIAGNOSIS: Right Volar Wrist Ganglion Cyst POST-OP DIAGNOSIS: same PROCEDURE: Excision of volar wrist ganglion cyst - RIGHT wrist SURGEON: Vaughn Anderson ANESTHESIA TYPE: General:No Airway Refer to Anesthesia Record ESTIMATED BLOOD LOSS: 5 PATHOLOGY: none sent TOURNIQUET TIME: 10 COMPLICATIONS: None Patient was transported to: PACU Patient's condition: stable Indications: Андрей is a 78 year old male who I have seen for a volar wrist ganglion cyst. It has continued to be bothersome despite some conservative options. Its size and interference with activities continues to cause problems. Therefore, I offered excision of the volar wrist cyst. I discussed the risks to include bleeding, infection, pain, stiffness, damage to nerve and vessels, recurrence. Despite these risks, he elects to proceed. Findings: There is a large chronic ganglion cyst within the volar wrist encasing the flexor carpi radialis and abutting the carpal tunnel. It seemed to be derived from the tendon sheath itself as I do not see an origin at the volar wrist capsule. The cyst was removed in whole. Procedure Description: Андрей was greeted in the preoperative holding area. Identity was confirmed and the correct site was identified and marked. Consent was reviewed the patient and signed. History and physical was updated. The patient to take not to the operating room placed in supine position. All bony prominences were well- padded. A nonsterile tourniquet was placed high up onto the right arm. The arms and prepped with ChloraPrep and draped in a standard fashion. The surgical site was marked on the skin and injected with 1% lidocaine with epinephrine buffered with sodium bicarbonate. The limb was exsanguinated and the tourniquet was inflated to 250 mmHg where it stayed for 10 minutes. The skin was incised sharply. Deeper dissection was carried out with tenotomy scissors and careful attention to vascular branches in this area. The mass was identified and protected with dissection carried around. This seemed to fully encased the flexor carpi radialis tendon. Under fully dissecting this out I then deflated the cyst where a copious amount of thickened synovial fluid was evacuated. Then, the cyst structure was resected. The wound was then thoroughly irrigated. The volar wrist capsule was identified but did not show any connections with the cyst material. The seem to be derived from the tendon itself. The tourniquet was deflated. There is no major arterial bleeding or any other persistent ooze was cauterized with the bipolar electrocautery. The wound was dry. The deep layer was reapproximated with a 3-0 Vicryl. The skin was closed with a running 4-0 Monocryl followed by skin glue, gauze, and Honorio wrap. At the end the case all counts were correct. The patient was awakened from anesthesia and taken to the PACU in stable condition. There were no noted complications. Date of Procedure: 04/23/24
== END 2024-04-23 14:07 | disposition home or self-care (01) ==
PROVIDERS: PCP Physician Assistant; Visit Provider Student in an Organized Health Care Education/Training Program
PROC: (CPT 25111; principal; 2024-04-23 12:45)
DX: M67.431 Ganglion, right wrist (principal); D50.9 Iron deficiency anemia, unspecified; K21.9 Gastro-esophageal reflux disease without esophagitis; K44.9 Diaphragmatic hernia without obstruction or gangrene; E11.9 Type 2 diabetes mellitus without complications; I25.10 Atherosclerotic heart disease of native coronary artery without angina pectoris
CPT/HCPCS: 25111; J0690; J1100; J2004; J2405; J2704

== ENCOUNTER → 2024-05-01 08:51 | Outpatient (BNVA) | payer MEDICARE, BC, SELFPAY | PROVIDERS: PCP Physician Assistant; Referring Provider Physician Assistant | DX: Z47.89 Encounter for other orthopedic aftercare (principal); R60.0 Localized edema | CPT/HCPCS: 99024 ==

== ENCOUNTER 2024-05-05 00:58 | Outpatient (CLI) | payer MEDICARE, BC, SELFPAY ==
--- NOTE | 2024-05-05 | ETT_ITS ---
APPROVED REPORT Exam: Exercise Treadmill Patient Location: Out-Patient Room/Bed: Stress Nurse: Avani Smith RN Ordering Provider:WHITNEY SUKHI, Contact Number: [phone] BMI: 30.40 Baseline Rhythm: Atrial Fibrillation Indications: H/O stent placements, increasing dyspnea on exertion Medical History Medical History: Essential HTN, atherosclerosis of renal artery, anemia, afib, stent placement (2 vas cular, one renal), DMT2, athersclerosis of [place] coronary artery, HLD, RICHIE, malignant neuroendocrine carcinoma, bilateral renal stenosis Cardiac Medications: Potassium chloride, lisinopril, hydrochlorothiazide, rosuvastatin, nitro, flomax , glucosamine chondroitin, metformin, metoprolol succinate, aspirin, methocarbamol, pantoprazole, hyd rocodone with tylenol Allergies: NKA Cardiac Risk Factors: Family hx, HTN, HLD, CVD, diabetes, former smoker Previous Cardiac Procedures: Cardiac stent placement Pretest Chest Pain Characteristics: None Exercise History: Indeterminate Physical Disabilities: None Lung Sounds: Clear to auscultation Heart Sounds: Irregular Stress Test Details Test: Exercise stress testing was performed using a Sumeet protocol. Rest Stress HR Resting HR Supine: 61 bpm Max Heart Rate (APMHR): 144 bpm Resting HR Standin bpm Target HR (85% APMHR): 122 bpm Max HR Achieved: 129 bpm % of APMHR: 90 Recovery HR: 69 bpm HR response to stress: Normal HR response to stress BP Resting BP Supine: 160/80 mmHg Resting BP Standin/74 mmHg Max BP: 180/78 mmHg Recovery BP: 140/90 mmHg BP response to stress: Normal blood pressure response to stress. ECG Resting ECG: Atrial Fibrillation Stress ECG: Atrial Fibrillation ST Change: No significant ST segment changes noted Arrhythmia: Occasional PVC's Recovery ECG: Atrial Fibrillation Recovery ST Change: No significant ST segment changes noted Recovery Arrhythmia: Occasional PVC's Clinical Reason for Termination: Target HR Achieved, mod-severe SOB Stress Symptoms: Mod-severe SOB Exercise duration: 03 min58 sec Highest Stage Reached: Stage 2: 2.5 mph at 12% grade. Exercise capacity: 5.8 METs Angina Score: None Rate Pressure Product: [id number] Stress ECG Conclusion 1. Resting electrocardiogram showed atrial fibrillation and nondiagnostic ST-T abnormalities 2. Patient exercised on the Sumeet protocol and completed a workload of 5.8 METS 3. Electrocardiographic portion of the test did not demonstrate any myocardial ischemia. Peak heart rate achieved was 90% of maximal predicted for age Stress Test Summary STAGE Time (mins) Speed (mph) Grade (%) HR BP SpO2 SYMPTOMS METS Supine 61 160/80 98 Standing 70 156/74 1 3 1.7 10 117 162/78 90% Mod SOB 4.5 2 6 2.5 12 125 Mod-severe SOB 7 1 min recovery 103 164/68 99% Mod-severe SOB 3 min recovery 71 180/78 Mod SOB 6 min recovery 69 140/90 98% SOB resolved Patient left ambulatory in no apparent distress.
== END 2024-05-05 01:18 ==
LOC: DI 00:58
PROVIDERS: PCP Physician Assistant; Visit Provider Internal Medicine Cardiovascular Disease
DX: R06.09 Other forms of dyspnea (principal)
CPT/HCPCS: 93016; 93018; 93017

== ENCOUNTER 2024-05-19 10:50 | Outpatient (REF) | payer MEDICARE, BC, SELFPAY ==
[2024-05-19 15:33] LABS: HCT 35.7 % (40.0-50.0); HGB 10.6 g/dL (13.5-17.5); MCH 24.1 pg (27.0-33.0); MCHC 29.7 % (32.0-36.0); MCV 81 fL (80-95); MPV 11.2 fL (8.0-11.0); Platelet Count 271 10^3/uL (130-400); RDW 15.8 % (11.8-14.1); RDW-SD 46.6 fL
[2024-05-19 16:14] LABS: ALT 18 U/L (16-63); AST 17 U/L (15-37); Albumin 3.4 g/dL (3.4-5.0); Alkaline Phosphatase 85 U/L (46-116); Anion Gap 6.4 mmol/L (3-11); BUN 13 mg/dL (7-18); Bilirubin, Total 0.8 mg/dL (0.2-1.0); CO2 31.6 mmol/L (21.0-32.0); CREATININE 0.9 mg/dL (0.70-1.30); Calcium 9.5 mg/dL (8.5-10.1); Chloride 105 mmol/L (98-107); Estimated GFR 88.51 (mL/min/1.73m2); Glucose 118 mg/dL (74-106); Potassium 4.3 mmol/L (3.5-5.1); Sodium 143 mmol/L (136-145); Total Protein 6.5 g/dL (6.4-8.2); Vitamin B12 598 pg/mL (193-986)
[2024-05-19 16:27] LABS: Iron 43 ug/dL (65-175); Total Iron Binding Capacity 417 ug/dL (250-450); Transferrin Sat 10 % (20-55)
== END 2024-05-19 10:51 | disposition home or self-care (01) ==
LOC: NCHCN 10:50
PROVIDERS: PCP Physician Assistant; Visit Provider Physician Assistant
DX: D64.9 Anemia, unspecified (principal); E53.8 Deficiency of other specified B group vitamins
CPT/HCPCS: 80053; 85027; 82607; 83540; 83550

== ENCOUNTER 2025-02-03 11:15 | Outpatient (REF) | payer MEDICARE, BC, SELFPAY ==
[2025-02-03 17:09] LABS: HCT 38.5 % (40.0-50.0); HGB 11.9 g/dL (13.5-17.5); MCH 26.7 pg (27.0-33.0); MCHC 30.9 % (32.0-36.0); MCV 87 fL (80-95); MPV 10.9 fL (8.0-11.0); Platelet Count 232 10^3/uL (130-400); RBC 4.45 10^6/uL (4.36-5.78); RDW 15.7 % (11.8-14.1); RDW-SD 49.5 fL; WBC 7.77 10^3/uL (4.4-10.8)
[2025-02-03 17:20] LABS: Iron 52 ug/dL (65-175); Total Iron Binding Capacity 367 ug/dL (250-425); Transferrin Sat 14 % (20-55)
[2025-02-03 17:25] LABS: ALT 15 U/L (10-49); AST 21 U/L (<34); Albumin 4.2 g/dL (3.2-5.0); Alkaline Phosphatase 68 U/L (46-116); Anion Gap 10.9 mmol/L (3-11); BUN 10 mg/dL (9-23); Bilirubin, Total 0.90 mg/dL (0.2-1.2); CO2 30.1 mmol/L (20.0-31.0); Calcium 9.2 mg/dL (8.3-10.6); Chloride 102 mmol/L (98-107); Cholesterol 78 mg/dL (<200); Glucose 109 mg/dL (74-106); HDL Cholesterol 31 mg/dL (>40); Potassium 3.9 mmol/L (3.5-5.1); Sodium 143 mmol/L (136-145); Total Protein 6.3 g/dL (5.7-8.2)
[2025-02-03 17:45] LABS: Hemoglobin A1C 7.1 % (<5.7)
[2025-02-03 17:59] LABS: Microalb ug/mg Crea 144.4 ug/mg Cr
== END 2025-02-03 11:16 | disposition home or self-care (01) ==
LOC: NCHCN 11:15
PROVIDERS: PCP Physician Assistant; Visit Provider Physician Assistant
DX: E11.9 Type 2 diabetes mellitus without complications (principal)
CPT/HCPCS: 80053; 80061; 85027; 82043; 82570; 83036; 83540; 83550